=== PATIENT | female | born 1945 | race Asian ===

== ENCOUNTER 2016-05-16 15:10 | Inpatient (IN) | payer MEDICARE, MEDICAID ==
--- NOTE | 2016-05-16 15:33 | ED Physician Chart ---
Chief Complaint/HPI - Patient Information Date Seen:: 05/16/16 Time Seen:: 15:20 Chief Complaint:: facial trauma History of Present Illness:: unwitnessed fall. Facial contusions. Missed dialysis today. Language barrier : speaks Palestinian. Historian:: EMS Review:: Transfer documents Reviewed Review of Systems - Review of Systems General/Constitutional: No fever, No chills Skin: Skin lesions Head: No headache Eyes: No loss of vision ENT: No earache, No nasal drainage, No sore throat Neck: No neck pain, No stiffness Cardio Vascular: No chest pain, No palpitations Pulmonary: No SOB GI: No nausea, No vomiting G/U: No dysuria, No frequency Musculoskeletal: No bone or joint pain, No muscle pain Endocrine: No polyuria Psychiatric: Depression Hematopoietic: Bruising Allergic/Immuno: No urticaria Neurological: No focal symptoms Past Medical History - Past Medical History Past Medical History: HTN, DM, CHF, Asthma/COPD (renal failure on dialysis), Thyroid disorder, Arthritis, Dementia, Other (AHD; GERD; atrial fibrillation; arthritis; anemia; insomnia; CHF) Family History: Other (unavailable) Social History: Care Facility Surgical History: other (hip; G-tube; Gaurav catheter) Psychiatricy History: Dementia Medication: Reviewed Family Medical History - Family Member Mother History Unknown: Yes Ethnicity: Non- Living Status: Physical Exam - Physical Examination Other Gen/Cons comments:: chronically ill appearing; shallow respirations Head: Atraumatic Eyes: Lids, conjuctiva normal, PERRL Other Skin comments:: stasis dermatitis forearms; 3 cm superficial ulcer proximal right forearm ENMT: External ears, nose nl Other ENMT comments:: edentulous Neck: No nuchal rigidity Respiratory: Nl effort/Exclusion, Clear to Auscultation Cardio Vascular: RRR GI: No tenderness/rebounding/guarding, No organomegaly, No hernia : No CVA tenderness Extremities: Normal digits & nails Neuro/Psych: No focal deficits Labs/Radiology/EKG Results - Lab Results Results: Laboratory Results - last 24 hr 05/16/16 05/16/16 05/16/16 15:35 15:35 15:35 WBC 17.7 H RBC 4.38 Hgb 12.7 Hct 36.8 MCV 84.0 MCH 28.9 MCHC Differential 34.4 RDW 15.7 Plt Count 250 MPV 8.4 Neutrophils % 83.4 H Lymphocytes % 8.3 L Monocytes % 6.9 Eosinophils % 0.7 Basophils % 0.7 Sodium 129 L Potassium 3.9 Chloride 94 L Carbon Dioxide 29.2 Anion Gap 9.7 BUN 77 H Creatinine 3.1 H Est GFR ( Amer) TNP Est GFR (Non-Af Amer) TNP BUN/Creatinine Ratio 24.8 Glucose 129 H Calcium 11.7 H Magnesium 3.0 H Troponin I B-Natriuretic Peptide 1140.0 H 05/16/16 15:35 WBC RBC Hgb Hct MCV MCH MCHC Differential RDW Plt Count MPV Neutrophils % Lymphocytes % Monocytes % Eosinophils % Basophils % Sodium Potassium Chloride Carbon Dioxide Anion Gap BUN Creatinine Est GFR ( Amer) Est GFR (Non-Af Amer) BUN/Creatinine Ratio Glucose Calcium Magnesium Troponin I 0.03 B-Natriuretic Peptide - Radiology Results Results: CXR: COPD and calcification of aortic arch; CT he4ad: severe atrophy; right frontal parietal: possible meningioma; small loculated subdural hematoma cannot be ruled out - EKG Interpretations Rhythm: NSR [place]: normal Rate: 86 Comments:: old anterior-septal [facility] ED Septic Shock - . Is Septic Shock (SBP<90, OR Lactate>4 mmol\L) present?: No Reassessment (Disposition) - Reassessment Reassessment Condition:: Unchanged - Diagnosis Diagnosis:: abscess right forearm; leukocytosis; blunt head trauma; renal failure on dialysis - Patient Disposition Admitted to:: Med/Surg Spoke to:: Yohannes Bradshaw Admitting Medical Physician:: Yohannes Bradshaw Condition at Disposition:: Stable, Unchanged
[2016-05-16 15:49] LABS: % BASOPHILS 0.7 % (0.0-2.0); % EOSINOPHILS 0.7 % (0.0-5.0); % LYMPHOCYTES 8.3 % (20.0-50.0); % MONOCYTES 6.9 % (2.0-10.0); % NEUTROPHILS 83.4 % (40.0-80.0); HEMATOCRIT 36.8 % (35.0-45.0); HEMOGLOBIN 12.7 gm/dL (11.7-16.1); MEAN CORPUSCULAR HEMOGLOBIN 28.9 pg (27.0-31.0); MEAN CORPUSCULAR HGB CONC 34.4 pg (28.0-36.0); MEAN PLATELET VOLUME 8.4 fl; NEUTROPHILE ABSOLUTE 14.8 Th/cmm (1.8-8.0); PLATELET COUNT 250 Th/cmm (150-400); RED BLOOD COUNT 4.38 Mil/cmm (3.80-5.20); RED CELL DISTRIBUTION WIDTH 15.7 % (11.5-20.0); WHITE BLOOD COUNT 17.7 Th/cmm (4.8-10.8)
[2016-05-16 15:55] LABS: ANION GAP 9.7 (7.0-16.0); BUN - UREA NITROGEN 77 mg/dL (7-25); BUN/CREATININE RATIO 24.8; CALCIUM SERUM 11.7 mg/dL (8.6-10.3); CARBON DIOXIDE 29.2 mEq/L (21.0-31.0); CHLORIDE 94 mEq/L (98-107); CREATININE - SERUM 3.1 mg/dL (0.6-1.2); GLUCOSE 129 mg/dL (70-105); POTASSIUM SERUM 3.9 mEq/L (3.5-5.1); SODIUM SERUM 129 mEq/L (136-145)
--- NOTE | 2016-05-16 16:06 | Diagnostic Imaging Report ---
Portable chest x-ray HISTORY: Shortness of breath Allowing for portable technique, the overall heart size is normal. Atherosclerotic calcification seen through the aorta. A 5 mm calcified nodule is noted in the left lower lobe consistent with old granulomatous disease. No acute pulmonary processes. A right-sided vascular catheter tip is in the region of the right atrium. IMPRESSION: 1. No acute abnormalities 2. Atherosclerotic vascular changes 3. Small calcified nodule within the left lower lobe consistent with old granulomatous disease 4. Vascular catheter tip in the region of the right atrium.
--- NOTE | 2016-05-16 23:30 | Admit Criteria Form ---
Admit Criteria Forms - Admit Criteria Diagnosis: HYPONATREMIA; HYPERNATREMIA; HYPOKALEMIA; HYPERKALEMIA; HYPOCALCEMIA; HYPERCALCEMIA Clinical Indications for Inpatient Care (Place 'X' for any and all applicable criteria): Ongoing inpatient care may be indicated for ANY ONE of the following [G](1)(2)(3 )(5): [X]I. Hyponatremia with ANY ONE of the following: [X]a) Sodium less than 130 mEq/L (mmol/L) (new) (6)(22) [ ]b) Sodium less than 135 mEq/L (mmol/L) with ANY ONE of the following: [ ]i) Severe medical etiology requiring inpatient management (eg, heart failure, hypovolemia) [ ]ii) Altered mental status [ ]iii) Seizures [ ]II. Hypernatremia with ANY ONE of the following: [ ]a) Sodium greater than 155 mEq/L (mmol/L) [ ]b) Sodium greater than 150 mEq/L (mmol/L) with ANY ONE of the following: [ ] i) Altered mental status [ ]ii) Seizures [ ]iii) Severe medical etiology (eg, hypovolemia, diabetes insipidus) [ ]iv) Severe weakness [ ]v) Severe medical etiology (eg, hemolysis, infection, drug overdose) [ ]III. Hypokalemia with ANY ONE of the following: [ ]a) Potassium less than 2.5 mEq/L (mmol/L) despite outpatient and emergency treatment [ ]b) Potassium less than 3.0 mEq/L (mmol/L) with ANY ONE of the following: [ ]i) Weakness [ ]ii) Cardiac abnormality (eg, arrhythmia, conduction disturbance) [ ]iii) Cardiac ischemia [ ]iv) Ileus [ ]v) Ongoing medical cause requiring inpatient management. ( e.g., acute renal wasting, SIADH) [ ]vi) Other severe symptoms [ ] IV. Hyperkalemia with ANY ONE of the following: [ ]a) Potassium greater than 6.5 mEq/L (mmol/L) [ ]b) Potassium greater than 5 mEq/L (mmol/L) with ANY ONE of the following: [ ]i) Severe ECG findings [H] [ ]ii) Acute worsening of renal failure (creatinine greater than 2.5 mg/dL (221 micromoles/L) or significant elevation for age and size) [ ] V. Hypocalcemia with ANY ONE of the following: [ ]a) Calcium less than 7 mg/dL (1.75 mmol/L) despite outpatient and emergency treatment(19) [ ]b) Calcium less than 8 mg/dL (2 mmol/L) with significant symptoms or findings; examples include: [ ]i) Cardiac abnormality (eg, arrhythmia or conduction disturbance) [ ]ii) Altered mental status [ ]iii) Seizures [ ]iv) Breathing difficulty [ ]v) Muscle spasms [ ]. Hypercalcemia with ANY ONE of the following: [ ]a) Calcium greater than 14 mg/dL (3.5 mmol/L) [ ]b) Calcium greater than 12 mg/dL (3 mmol/L) with ANY ONE of the following: [ ]i) Significant dehydration or hypovolemia as indicated by ANY ONE of the following(2): [ ]1. Clinically significant dehydration as indicated by ANY ONE of the following: [ ]A. Acute loss of weight from baseline (5% of body weight in adults, 9% in pediatric patients) [ ]B. Hemodynamic instability [ ]C. Acute renal failure [ ]D. Serum sodium greater than 150 mEq/L (mmol/L) [ ]2) Dehydration that is persistent indicated by ALL of the following: [ ]A. Oral rehydration therapy not tolerated or insufficient to adequately correct dehydration [ ]B. Appropriate intravenous treatment (eg, fluids ) does not readily correct dehydration ie, after 12 to 24 hours of treatment) [ ]ii) Significant symptoms or findings; examples include: [ ]1) Altered mental status [ ]2) Cardiac abnormality (eg, arrhythmia, conduction disturbance) [ ]3) Cardiac abnormality (eg, arrhythmia, conduction disturbance) The original [facility] content created by [employer] has been revised. The portions of the content which have been revised are identified through the use of italic text or in bold, and [email or web address] has neither reviewed nor approved the modified material. All other unmodified content is copyright [email or web address] Please see references footnoted in the original [facility] edition 2016 Admit Criteria Met?: Yes
[2016-05-17 06:14] LABS: PROTHROMBIN TIME (TEST) 44.4 SECONDS (9.5-11.5)
[2016-05-17 06:17] LABS: INR 4.09 (0.5-1.4)
[2016-05-17] MEDS: Vitamin B Complex w/Vitamin C Tab GT SCH (08:49)
[2016-05-17] MEDS: Levothyroxine 0.125 Mg Tab GT SCH (08:49)
[2016-05-17] MEDS: Pantoprazole 40 mg/Packet GT SCH (08:49)
--- NOTE | 2016-05-17 11:32 | Diagnostic Imaging Report ---
Head CT without intravenous contrast Indication: Fall, shallow respirations Comparison: None Technique: Axial images were obtained from the vertex to the skull base without IV contrast. Coronal reconstructions were made. Total DLP: 555, CTDI30.9 FINDINGS: Exam is limited due to motion. Images of the brain obtained contrast demonstrate 1.0 x 0.5 cm right frontal extra-axial isodensity. Otherwise no evidence of an acute hemorrhage. Atrophy is noted with diffuse white matter disease. Old infarcts are seen along the left basal ganglia and left cerebellar hemisphere. The ventricles and basal cisterns are patent. No mass effect or midline shift. Assessment for a skull fracture is limited on this exam, however, no gross skull fractures identified. IMPRESSION: Limited exam due to motion. 1.0 x 0.5 cm isodense right frontal extra-axial lesion, nonspecific, and may represent a meningioma. Other etiologies such as posttraumatic etiology and small extra-axial subacute hemorrhage would be considered less likely. Clinical correlation and short-term follow-up is suggested. Short-term follow-up MRI, preferably with IV contrast with be helpful for further assessment. Diffuse supratentorial white matter disease which is nonspecific and may be due to chronic microvessel ischemia. 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 Atrophy. Atherosclerotic vascular disease.
--- NOTE | 2016-05-17 15:22 | History & Physical ---
IDENTIFICATION: The patient is a 70-year-old female. REASON FOR CONSULTATION: Unwitnessed fall, facial contusion, missed dialysis today. HISTORY OF PRESENT ILLNESS: The patient is a 70-year-old female with past medical history of hypertension, diabetes mellitus, CHF, asthma, COPD, renal failure on hemodialysis, CKD stage V, on hemodialysis, thyroid disorder, dementia, atrial fibrillation, anemia, insomnia, CHF brought from custodial for status post fall with some facial contusion. On further evaluation, found to have right upper extremity wound with surrounding erythema. The patient was admitted for cellulitis of the right upper extremity. On initial evaluation, the patient's temperature was 98.9 degrees Fahrenheit and WBC count was 17,700. Sepsis workup was performed. The patient was admitted to the med/surg unit for further antibiotic management. The patient was started on vancomycin. PAST MEDICAL HISTORY: As mentioned above, CKD stage V, on hemodialysis, severe dementia, hypertension, diabetes mellitus, CHF, thyroid disorder, arthritis, atrial fibrillation, anemia, insomnia, CHF. FAMILY HISTORY: Noncontributory. SOCIAL HISTORY: The patient lives at nursing facility. PAST SURGICAL HISTORY: Includes G-tube placement and Gaurav catheter. PSYCHIATRIC HISTORY: Dementia. FAMILY HISTORY: Unknown. REVIEW OF SYSTEMS: The patient unable to give any history, very poor historian, demented. PHYSICAL EXAMINATION: VITAL SIGNS: Shows temperature is 97.5, pulse 83, respirations 18, blood pressure is 133/56. GENERAL: The patient is comfortable, cachectic, not in acute distress. HEENT: Head is normocephalic, atraumatic. Oral cavity moist. [place] tongue. Eyes: Pallor is present, no icterus. PERRLA, EOMI. NECK: Supple, no JVD, no carotid bruit. Trachea in midline. CHEST: Bilateral breath sounds. No crackles, wheezing. The patient has right-sided subclavian Perm-A-Cath. HEART: S1, S2 within normal limits. Regular rhythm. ABDOMEN: Soft, nontender, nondistended. Bowel sounds present. EXTREMITIES: No cyanosis, no clubbing, no edema. On right hand, the patient has 3 cm stage II-III wound in the right forearm. NEUROLOGICAL: No focal deficits. LABORATORY DATA: Current labs shows WBC count 17,700, hemoglobin 12.7, hematocrit 36.8, platelets are 250,000, neutrophils 83.4%. Sodium is 129, potassium 3.9, chloride 94, bicarbonate is 29, BUN is 77, creatinine 3.1, glucose is 129. Chest x-ray showed no acute abnormalities, small calcified nodule in left lobe consistent with old granulomatous disease. CT scan of the head suggested 1 x 0.5 cm isodense right frontal extraaxial lesion, nonspecific and may represent meningioma. Other etiologies includes such as posttraumatic etiology and small extraaxial subacute hemorrhage will be considered less likely. IMPRESSION: 1. Right upper extremity cellulitis with wound. 2. Chronic obstructive pulmonary disease. 3. Atrial fibrillation. 4. Coagulopathy because of warfarin. 5. Hypertension. 6. Chronic obstructive pulmonary disease. 7. Cachexia. 8. Small subdural hematoma versus meningioma. RECOMMENDATIONS: We will ask for Neurology consultation, Cardiology consultation, and Nephrology consultation. Wound care. Restart Dorcas. [facility]# [id number] MTDD
[2016-05-17] MEDS ORDERED: VTE Chemical Prophylaxis Screen/Admission MC PRN (17:01)
[2016-05-17] MEDS ORDERED: Non-Formulary Item 1 EA (Melatonin [Melatonin] 5 MG) GT SCH (21:00)
--- NOTE | 2016-05-17 23:38 | Consultation ---
REASON FOR CONSULTATION: End-stage renal disease. HISTORY OF PRESENT ILLNESS: The patient is a pleasant 70-year-old woman with a history of end-stage renal disease secondary to nephropathy and hypertensive nephrosclerosis, apparently dialyzing at [facility] who has a history of hypothyroidism, arthritis, dementia. On examination, unable to obtain any history from the patient due to the patient's dementia. The patient apparently missed her dialysis due to apparent fall at home for which she was admitted and examination as per above, could not obtain any history. Right tunneled chest wall catheter is in place. REVIEW OF SYSTEMS: Unable to obtain secondary to patient's status, communication barrier. PAST MEDICAL HISTORY: End-stage renal disease, on hemodialysis secondary to diabetic nephropathy, congestive heart failure, asthma, COPD, hypothyroidism, arthritis, dementia, atrial fibrillation, anemia secondary to end-stage renal disease. MEDICATIONS: From nursing facility reviewed. Continues to be on omeprazole, Norvasc, Remeron, metoprolol, melatonin, Dulcolax, Coumadin, amiodarone, Tylenol, Renovite and Synthroid. ALLERGIES: No known drug allergies. SOCIAL HISTORY: Denies smoking, alcohol or drug use per report from residential. FAMILY HISTORY: Noncontributory. PHYSICAL EXAMINATION: VITAL SIGNS: Temperature 36, blood pressure 142/60, pulse 83, respirations 18. GENERAL APPEARANCE: Elderly woman, cachectic, in no apparent distress, alert, but not oriented. LUNGS: Clear to auscultation bilaterally. CARDIOVASCULAR: Regular rate. Normal rhythm. No murmurs, gallops. ABDOMEN: Nondistended, nontender. G-tube is place. No erythema over site seen. EXTREMITIES: Trace edema, 1+ pulses distally. Chest wall, right tunneled catheter in place. Site clean, dry, and intact. LABORATORY DATA: White count 17.7, hemoglobin 12.7, platelets 250. Chemistry: Sodium 129, K 3.9, chloride 94, CO2 29, BUN 77, creatinine 3.1, glucose 129, calcium 11.7, mag is 3.0. BNP is 1140. Imaging done. A chest x-ray demonstrates small pleural effusion, otherwise no acute cardiopulmonary disease detected. A head CT demonstrates chronic small vessel ischemic disease. Focal hypodensity left frontal white matter region. Otherwise, a partially hyperdense extraaxial density left parietal region, possible subdural hematoma. ASSESSMENT AND RECOMMENDATIONS: 1. End-stage renal disease, on hemodialysis via a right tunneled catheter. Per report very little residual urine output noted. Continue dialysis. We will do a session today. The patient can likely be stable over the weekend as long as fluid restriction to a maximum of 2 liters a day as recorded. Otherwise, we will assess for dialysis on an as needed basis. 2. Anemia secondary to end-stage renal disease. Hemoglobin appears to be within normal limits and actually as above range. No transfusion or erythropoietin is indicated at this time. 3. History of dementia. Mental status appears to be at baseline. 4. History of hypertension. Continue current medications. Amlodipine, amiodarone and metoprolol through G-tube at this time. 5. Left forearm cellulitis - on antibiotics per primary team Thank you, Dr. Dariel Bradshaw for allowing us to participate in the care of his end-stage renal disease patient. We will continue to follow along while hospitalized. Please call at any time with questions. [facility]# [id number] BRIA
--- NOTE | 2016-05-18 03:49 | Consultation ---
HISTORY OF PRESENT ILLNESS: This 70-year-old female was seen and examined at the courtesy of Dr. Yohannes Bradshaw. Apparently, the patient was admitted here with a history of fall, possible head trauma, abnormal CAT scan of the head and also with abscess on the right forearm open wound. The patient does have history of high blood pressure, history of coronary artery disease, history of cardiac arrhythmia, has been on Coumadin, I do not know what kind of arrhythmia she had in the past, congestive heart failure and has end-stage renal disease, on hemodialysis. She has also history of hypothyroidism. The patient was also found to have leukocytosis and hypothyroidism. PAST MEDICAL HISTORY: Usual childhood diseases. No history of rheumatic fever. No history of scarlet fever. Other positive history as mentioned above. FAMILY HISTORY: Apparently not significant. REVIEW OF SYSTEMS: Whatever I could get from the notes, she has chest pain, some shortness of breath, no cough, no fever, no hemoptysis, no history of melena, no history of hematuria, history of end-stage renal disease. PHYSICAL EXAMINATION: VITAL SIGNS: Heart rate was 72, blood pressure was 132/56, temperature 97.5, respirations 18. SKIN: Normal. HEAD: Normocephalic. EYES: Conjunctivae are pink. There is no icterus in the eyes. Pupils reactive to light. NECK: There was no increased jugular vein distention, no thyromegaly, no lymphadenopathy. Carotids are equal on both sides. CHEST: Bilaterally symmetrical, moved well with respiration. Respiratory movements are equal on both sides. Trachea is central. There is note to percussion. Breath sounds normal. CARDIOVASCULAR SYSTEM: PMI not well localized and no positional thrill, no parasternal heave. S1 normal. S2 physiologic. There was no definite S3, no rub. ABDOMEN: Soft, no tenderness, no rigidity, no guarding, no organomegaly. Bowel sound normal. EXTREMITIES: No calf tenderness. Peripheral pulses diminished. LABORATORY DATA: On reviewing the lab and the x-rays, CAT scan of the head shows 1 x 0.5 cm isodense right frontal extraaxial lesion, nonspecific and may represent a meningioma. Other possibilities could be posttraumatic etiology and a small extraaxial subacute hemorrhage possible. WBC count was 17.7, hemoglobin 12.7, hematocrit 36.8, platelet count was 250. Sodium 129, potassium 3.9, chloride 94, carbon dioxide 29, BUN 77, creatinine 3.1. INR was 4.09. Troponin was 0.03. Glucose was 71. Calcium 11.7, magnesium 3.0. BNP was 1140. Chest x-ray just showed atherosclerotic vascular changes, small calcified nodule within the left lower lobe consistent with old granulomatous disease, vascular catheter tip in the region of right atrium. IMPRESSION: 1. Hypertension. 2. Coronary artery disease, electrocardiogram showing possible old anteroseptal myocardial infarction. 3. History of cardiac arrhythmia. 4. Congestive heart failure. 5. Coagulopathy. 6. End-stage renal disease, on hemodialysis. 7. Hyponatremia. 8. Anemia. 9. Hypothyroidism. 10. History of fall, possible head trauma with abnormal CT of the head, abscess of the right forearm with open wound. 11. Leukocytosis. 12. History of depression. DISCUSSION AND PLAN: Her blood pressure seems to be within normal limits now, stable. She does not have any chest pains, no respiratory distress, seems to be hemodynamically stable; however, BNP was high, congestive heart failure, but she is on hemodialysis, so that should be helpful to relieve CHF. We will get echocardiogram to evaluate left ventricular function and valvular structure. We will also get lipid profile. To continue beta-clayton and other BP medication. Even the NOÉ inhibitor can also be added and the patient is already on in the hemodialysis. Add statins. To continue other medications. Thank you. We will follow with you as needed. [facility]# [id number]
[2016-05-18 07:15] LABS: % BASOPHILS 0.5 % (0.0-2.0); % EOSINOPHILS 1.9 % (0.0-5.0); % LYMPHOCYTES 15.1 % (20.0-50.0); % MONOCYTES 8.6 % (2.0-10.0); % NEUTROPHILS 73.9 % (40.0-80.0); HEMATOCRIT 34.1 % (35.0-45.0); HEMOGLOBIN 11.7 gm/dL (11.7-16.1); MEAN CORPUSCULAR HEMOGLOBIN 28.7 pg (27.0-31.0); MEAN CORPUSCULAR HGB CONC 34.2 pg (28.0-36.0); MEAN PLATELET VOLUME 8.6 fl; NEUTROPHILE ABSOLUTE 9.6 Th/cmm (1.8-8.0); PLATELET COUNT 235 Th/cmm (150-400); RED BLOOD COUNT 4.06 Mil/cmm (3.80-5.20); RED CELL DISTRIBUTION WIDTH 16.3 % (11.5-20.0)
[2016-05-18 07:30] LABS: ANION GAP 8.9 (7.0-16.0); BUN - UREA NITROGEN 51 mg/dL (7-25); BUN/CREATININE RATIO 22.2; CALCIUM SERUM 9.7 mg/dL (8.6-10.3); CHLORIDE 100 mEq/L (98-107); CHOLESTEROL 120 mg/dL (<200); CREATININE - SERUM 2.3 mg/dL (0.6-1.2); GLUCOSE 114 mg/dL (70-105); POTASSIUM SERUM 3.9 mEq/L (3.5-5.1); SODIUM SERUM 134 mEq/L (136-145); TRIGLYCERIDES 178 mg/dL (<150)
[2016-05-18 07:39] LABS: WHITE BLOOD COUNT 12.9 Th/cmm (4.8-10.8)
[2016-05-18] MEDS ORDERED: Atorvastatin Calcium 10 MG TAB GT SCH (09:00)
[2016-05-18] MEDS: Pantoprazole 40 mg/Packet GT SCH (09:13)
[2016-05-18] MEDS: Atorvastatin Calcium 10 MG TAB GT SCH (09:14)
[2016-05-18] MEDS: Levothyroxine 0.125 Mg Tab GT SCH (09:14)
[2016-05-18] MEDS: Vitamin B Complex w/Vitamin C Tab GT SCH (09:15)
--- NOTE | 2016-05-18 10:15 | History & Physical ---
HISTORY OF PRESENT ILLNESS: The patient is a 70-year-old. The patient having fall unwitnessed, had contusion on the face. The patient has hemodialysis and apparently missed her dialysis. She is lying in bed, awake, alert. Follows simple instructions ____. PAST MEDICAL HISTORY: The patient has history of hypertension, diabetes, COPD, renal failure, on dialysis, thyroid disorder, the patient with dementia. The patient has atrial fibrillation, anticoagulation, anemia, insomnia. The patient has some cellulitis of the right upper extremity. The patient had fall shoulder as above. The patient has dysphagia, has a G-tube. She has weakness on the right side, so I did not know whether she has had previous stroke or not. SOCIAL HISTORY: The patient is in a nursing facility. PAST SURGICAL HISTORY: G-tube and Gaurav catheter. PSYCHIATRIC HISTORY: Dementia. REVIEW OF SYSTEMS: Difficult to get, but the patient has no seizures here. Moving extremities though less on the right. Dysphagia with G-tube. PHYSICAL EXAMINATION: VITAL SIGNS: Temperature 98.2, blood pressure 140/58, pulse is around 76. NECK: Supple. No bruits. HEART: Sounds S1, S2. LUNGS: Clear. ABDOMEN: Soft. NEUROLOGIC: Awake, alert. She follows ____. CRANIAL: Pupils react to light. She will look both to the right and left. The patient has facial droop on the right. ____, she will lift arms, but less on the right than the left. Reflexes about 1. Difficult to get at the ankles. INVESTIGATIONS: INR noted to be elevated. CT scan of the head, 1 cm x 0.5 lesion extraaxial on the right frontal area, question of possible meningioma, question of possible previous subacute hemorrhage. IMPRESSION: 1. Falls. 2. Possible meningioma, possible subacute chronic subdural. 3. Atrial fibrillation, coagulopathy because of anticoagulation. 4. Dementia. 5. Possible stroke, old with right-sided deficits. 6. Hypertension. 7. End-stage renal disease, on hemodialysis. MANAGEMENT: At this time, we cannot do a CT scan with contrast because of renal failure and I am going to do an MRI without contrast. ____ whether this is meningioma in which case she will be okay to go ahead and proceed with continue with anticoagulation. If this is a subacute hematoma, then will have to watch very closely and see whether this patient does really need anticoagulation or not as she has risk for increasing bleed. [facility]# [id number]
--- NOTE | 2016-05-18 14:50 | Cardiology ---
Patient of Dr. Yohnanes Bradshaw. M-MODE ECHOCARDIOGRAM: Mitral valve, anterior leaflet of mitral valve shows normal excursion, EF velocity. Posterior leaflet of the mitral valve shows normal excursion. Left ventricular posterior wall shows increased thickness, normal excursion. Interventricular septum shows increased thickness, normal excursion, hypertrophy of the left ventricle, ejection fraction 74%. Left atrium normal. Aortic root shows normal dimension, normal excursion of aortic leaflets. CONCLUSION: Hypertrophy of the left ventricle, ejection fraction 74%. 2D ECHO: Long axis view showed normal sized left ventricle with hypertrophy of the left ventricle. Left atrium normal. Aortic root shows normal dimension, normal excursion of aortic leaflets. Short axis view of mitral valve normal. Short axis view of aortic valve normal. Apical four chamber view showed normal sized left ventricle with hypertrophy of the left ventricle. Left atrium normal. Right ventricular cavity, right atrium normal, no pericardial effusion. CONCLUSION: Hypertrophy of the left ventricle, ejection fraction 74%. Doppler study shows mild mitral regurgitation, tricuspid regurgitation, aortic regurgitation with pressure half time of 768 milliseconds. CONCLUSION: Mild mitral regurgitation, tricuspid regurgitation, aortic regurgitation, ejection fraction 74%, hypertrophy of the left ventricle. No evidence of endocarditis. [facility]# [id number]
[2016-05-18] MEDS: Albuterol/Ipratropium Neb 3 ML AERS HHN SCH (19:51)
--- NOTE | 2016-05-18 21:00 | Consultation ---
REASON FOR CONSULTATION: Help patient with shortness of breath. CONSULT NOTE: This is a 70-year-old female who basically initially was admitted because had a fall and apparently has had some injury in the face and hand and subsequently had some issues with breathing as well as very poor cooperative. The patient was admitted and subsequently as the patient had shortness of breath, I was asked to see this patient for further care and necessary treatment. Unfortunately, the patient is a very poor historian, who is awake, ____ able to get meaningful detailed history, though clinically does ____ shortness of breath. PAST MEDICAL HISTORY: History of COPD, hypertension, diabetes mellitus, renal failure on dialysis and history of also dementia and also atrial fibrillation with anticoagulation. The patient lives in a convalescent home. Meaningful other past history is very difficult to obtain, has a G-tube and a Gaurav catheter. PHYSICAL EXAMINATION: GENERAL: This is an elderly looking female, awake, not in any acute distress. VITAL SIGNS: Temperature is 97.8, blood pressure 130/58. HEENT: Examination of the head is essentially unremarkable. Pupils appear to be equal and reactive to light. There is slight ____ in the left side. Oral cavity shows limited exam otherwise unremarkable. NECK: No nodes in the neck could be palpated. CHEST: Shows diminished air entry with occasional rhonchi. HEART: Regular. ABDOMEN: Soft, nontender. EXTREMITIES: Shows no peripheral edema. LABORATORY DATA: The patient's chest x-ray appears to be clear with a Gaurav catheter on the right side and also white count is 12.9. Electrolytes are okay with BUN and creatinine is slightly elevated. IMPRESSION: 1. The patient has a mild degree of asthmatic bronchitis. 2. History of fall, history of suspect of obstructive sleep apnea syndrome, cardiac arrhythmia, renal failure on hemodialysis. PLANS AND SUGGESTIONS: The patient clinically does not look too bad. We will give inhalation treatment, check ABG, etc. and see how she does and go from there. JOB# [id number]
--- NOTE | 2016-05-18 23:19 | Infectious Disease Prog Note ---
Infectious Disease Subjective - Review of Systems Service Date: 05/18/16 Subjective: no new change. Infectious Disease Objective - Results Result Diagrams: 05/18/16 06:26 05/18/16 06:26 Recent Labs: Laboratory Last Values WBC 12.9 Th/cmm (4.8-10.8) H D 05/18/16 06:26 RBC 4.06 Mil/cmm (3.80-5.20) 05/18/16 06:26 Hgb 11.7 gm/dL (11.7-16.1) 05/18/16 06:26 Hct 34.1 % (35.0-45.0) L 05/18/16 06:26 MCV 84.0 fl (81-100) 05/18/16 06:26 MCH 28.7 pg (27.0-31.0) 05/18/16 06:26 MCHC Differential 34.2 pg (28.0-36.0) 05/18/16 06:26 RDW 16.3 % (11.5-20.0) 05/18/16 06:26 Plt Count 235 Th/cmm (150-400) 05/18/16 06:26 MPV 8.6 fl 05/18/16 06:26 Neutrophils % 73.9 % (40.0-80.0) 05/18/16 06:26 Lymphocytes % 15.1 % (20.0-50.0) L 05/18/16 06:26 Monocytes % 8.6 % (2.0-10.0) 05/18/16 06:26 Eosinophils % 1.9 % (0.0-5.0) 05/18/16 06:26 Basophils % 0.5 % (0.0-2.0) 05/18/16 06:26 PT 44.4 SECONDS (9.5-11.5) H 05/17/16 04:57 INR 4.09 (0.5-1.4) H* 05/17/16 04:57 Sodium 134 mEq/L (136-145) L 05/18/16 06:26 Potassium 3.9 mEq/L (3.5-5.1) 05/18/16 06:26 Chloride 100 mEq/L (98-107) 05/18/16 06:26 Carbon Dioxide 29.0 mEq/L (21.0-31.0) 05/18/16 06:26 Anion Gap 8.9 (7.0-16.0) 05/18/16 06:26 BUN 51 mg/dL (7-25) H 05/18/16 06:26 Creatinine 2.3 mg/dL (0.6-1.2) H 05/18/16 06:26 Est GFR ( Amer) TNP 05/18/16 06:26 Est GFR (Non-Af Amer) TNP 05/18/16 06:26 BUN/Creatinine Ratio 22.2 05/18/16 06:26 Glucose 114 mg/dL (70-105) H 05/18/16 06:26 Calcium 9.7 mg/dL (8.6-10.3) 05/18/16 06:26 Magnesium 3.0 mg/dL (1.9-2.7) H 05/16/16 15:35 Troponin I 0.03 ng/mL (0.01-0.05) 05/16/16 15:35 B-Natriuretic Peptide 1140.0 pg/mL (5.0-100.0) H 05/16/16 15:35 Triglycerides 178 mg/dL (<150) H 05/18/16 06:26 Cholesterol 120 mg/dL (<200) 05/18/16 06:26 LDL Cholesterol Direct 67 mg/dL (75-193) L 05/18/16 06:26 HDL Cholesterol 33 mg/dL (23-92) 05/18/16 06:26 Random Vancomycin 15.6 ug/mL (5.0-40.0) 05/18/16 06:26 - Physical Exam Vitals and I&O: Vital Signs Temp 97.7 F 05/18/16 20:00 Pulse 77 05/18/16 20:00 Resp 18 05/18/16 20:00 BP 114/76 05/18/16 20:00 Pulse Ox 100 05/18/16 20:00 Intake & Output 05/18/16 05/18/16 05/19/16 06:59 18:59 06:59 Intake Total 530 420 Output Total 2600 Balance -2070 420 Intake: Tube Feeding 410 TPN/PPN 420 Other 120 Output: Hemodialysis 2600 Other: # Voids 3 # Bowel Movements 2 Stool Characteristics Soft Soft Brown Active Medications: Current Medications Acetaminophen (Tylenol) 650 mg GT Q6HR PRN PRN Reason: Pain or Fever >101 Stop: 07/15/16 23:02 Last Admin: 05/18/16 20:23 Dose: 650 mg Albuterol/Ipratropium (Duoneb Neb) 3 ml HHN Q6HRT GABRIEL Stop: 07/17/16 18:59 Last Admin: 05/18/16 19:51 Dose: 3 ml Amiodarone HCl (Cordarone) 200 mg GT DAILY GABRIEL Stop: 07/16/16 08:59 Last Admin: 05/18/16 09:14 Dose: 200 mg Amlodipine Besylate (Norvasc) 10 mg GT DAILY GABRIEL Stop: 07/16/16 08:59 Last Admin: 05/18/16 09:13 Dose: 10 mg Atorvastatin Calcium (Lipitor) 10 mg GT DAILY GABRIEL PRN Reason: Protocol Stop: 07/17/16 08:59 Last Admin: 05/18/16 09:14 Dose: 10 mg Bisacodyl (Dulcolax 10 Mg Supp) 10 mg RC Q48HR GABRIEL Stop: 07/15/16 23:14 Last Admin: 05/17/16 00:38 Dose: 10 mg Ceftriaxone Sodium 1 gm/ (Dextrose) 50 mls @ 100 mls/hr IV Q24H GABRIEL Stop: 07/16/16 12:59 Last Admin: 05/18/16 13:10 Dose: 100 mls/hr Levothyroxine Sodium (Synthroid) 0.125 mg GT DAILY GABRIEL Stop: 07/16/16 08:59 Last Admin: 05/18/16 09:14 Dose: 0.125 mg Metoprolol Succinate (Toprol Xl) 25 mg PO DAILY GABRIEL Stop: 07/16/16 08:59 Last Admin: 05/18/16 09:14 Dose: 25 mg Mirtazapine (Remeron) 15 mg GT HS GABRIEL PRN Reason: Protocol Stop: 07/16/16 20:59 Last Admin: 05/18/16 20:23 Dose: 15 mg Miscellaneous (Pharmacy To Dose) 1 ea MC PRN GABRIEL Stop: 07/15/16 23:14 Miscellaneous (Vte Chemical Prophylaxis Screen/ Admission) 1 ea MC PRN PRN PRN Reason: PROTOCOL Stop: 07/16/16 17:00 Pantoprazole Sodium (Protonix) 40 mg GT DAILY GABRIEL Stop: 07/16/16 08:59 Last Admin: 05/18/16 09:13 Dose: 40 mg Vitamin B Complex/Vit C/Folic Acid (Vitamin B Complex W/Vitamin C) 1 tab GT DAILY GABRIEL Stop: 07/16/16 08:59 Last Admin: 05/18/16 09:15 Dose: 1 tab General: no acute distress HEENT: atraumatic, normocephalic, PERRLA, EOMI Neck: supple Cardiovascular: S1S2, regular Lungs: clear to auscultation bilaterally, clear to percussion Abdomen: soft, no tender, no distended Extremities: other (R upper forearm wound with rednesess.), no cyanosis, no clubbing Skin: intact Infectious Disease Assmt/Plan - Assessment Assessment: right fore amm wound and cellulitis. Dementia. CKD 5 on HD. Afib. Coaulopathy. HTN COPD. Abnormal CT scan. - Plan Plan: will hold anticoagulation. Continue same treatment. F/u per consults. Wound care. Nutritional Asmnt/Malnutr-PDOC - Dietary Evaluation Malnutrition Findings (Please click <Entered> for more info): Nutritional Asmnt/Malnutrition Start: 05/17/16 13: 00 Text: Status: Complete Freq: Document 05/17/16 13:02 GSYOSHI (Rec: 05/17/16 13:32 [email or web address]) Nutritional Asmnt/Malnutrition Patient General Information Nutritional Screening High Risk Screening Diagnosis ER: leukocytosis, blunt head trauma, on HD, abscess right forearm Pertinent Medical Hx/Surgical Hx ER: HTN, DM, CHF, asthma/COPD, renal failure on HD, thyroid disorder, arthritis, dementia, AHD, GERD, atrial fibrillation Subjective Information 70 year old female from SNF, unwitnessed fall with facial contusions prior to adm. Pt was asleep, unable to be woken up. Pt appears small frame with moderate fat and muscle wasting to temporals, cheeks, clavicles, chest noted. Obtained new weight during visit, 83.2lb, BMI 16.2. Discussed with Dr. Yohannes Bradshaw to increase Novasource Renal to 35ml/hr x 24hrs, providing 1680kcal, 76g protein, obtained order. Current Diet Order/ Nutrition Support Novasource Renal 45ml/hr x 16hrs Pertinent Medications Dulcolax, Synthroid, Protonix, Vitamin B complex w/Vitamin C Pertinent Labs 05/16: BUN 77H, creatinine 3.1H , glucose 129H, BNP 1140H Nutritional Hx/Data Height 12.7 cm Height (Calculated Centimeters) 12.7 Current Weight (lbs) 37.739 kg Weight (Calculated Kilograms) 37.7 Weight (Calculated Grams) 70522.9 [place] Body Weight 100lb Weight Status Underweight GI Symptoms Difficult in: Chewing Swallowing Food Allergies No Cultural/Ethnic/Sabianist Belief Colombian. Usual diet at home Tube feeding dependent. Skin Integrity/Comment: ER and RN: right forearm abscess/ulceration Estimated Nutritional Goals Calories/Kcals/Kg IBW 115lb at BMI 22.5, 30- 35kcal/kg (on HD, malnutrition ) Kcals Calculated 1569-1831kcal/kg Protein g/kg: IBW 115lb at BMI 22.5, 1.2-1. 5g/kg (on HD, malnutrition, ? ulceration) Protein Calculated 63-78g Fluid: ml Per MD (hx. CHF) Nutritional Problem 2. Problem Problem Impaired nutrient utilization related to Etiology renal failure aeb Signs/Symptoms: pt is on HD 1. Problem Problem Increased kcal and prot needs related to Etiology renal failure, underweight/ malnutrition, skin integrity aeb Signs/Symptoms: on HD, ?ulceration right forearm, BMI 16.2, muscle/fat depletion Malnutrition Alert Body Fat Depletion (Severe) Mod to Severe Depletion Muscle Mass (Severe) Mod to Severe Depletion Intervention/Recommendation Comments 1. Recommend increase tube feeding rate Novasource Renal to 35ml/hr x 24hrs with consideration of hemodialysis, BMI <18.5, muscle/fat depletion, skin integrity. Expected Outcomes/Goals Expected Outcomes/Goals 1. Pt to meet 100% of estimated nutritional needs on tube feeding with tolerance. Physician Parameters for PEM Body Mass Index (BMI) 16 - 17.9 (Moderate)
[2016-05-19] MEDS: Albuterol/Ipratropium Neb 3 ML AERS HHN SCH ×4 (00:51→19:01)
[2016-05-19 06:01] LABS: % BASOPHILS 0.1 % (0.0-2.0); % EOSINOPHILS 3.1 % (0.0-5.0); % LYMPHOCYTES 15.4 % (20.0-50.0); % MONOCYTES 9.6 % (2.0-10.0); % NEUTROPHILS 71.8 % (40.0-80.0); HEMATOCRIT 32.2 % (35.0-45.0); HEMOGLOBIN 10.9 gm/dL (11.7-16.1); MEAN CELL VOLUME 86.5 fl (81-100); MEAN CORPUSCULAR HEMOGLOBIN 29.3 pg (27.0-31.0); MEAN CORPUSCULAR HGB CONC 33.9 pg (28.0-36.0); MEAN PLATELET VOLUME 8.5 fl; NEUTROPHILE ABSOLUTE 9.5 Th/cmm (1.8-8.0); PLATELET COUNT 234 Th/cmm (150-400); RED BLOOD COUNT 3.72 Mil/cmm (3.80-5.20); RED CELL DISTRIBUTION WIDTH 16.5 % (11.5-20.0); WHITE BLOOD COUNT 13.2 Th/cmm (4.8-10.8)
[2016-05-19 06:13] LABS: INR 1.41 (0.5-1.4); PROTHROMBIN TIME (TEST) 14.3 SECONDS (9.5-11.5)
[2016-05-19 06:19] LABS: ANION GAP 12.2 (7.0-16.0); BUN - UREA NITROGEN 78 mg/dL (7-25); BUN/CREATININE RATIO 24.4; CALCIUM SERUM 9.8 mg/dL (8.6-10.3); CARBON DIOXIDE 25.5 mEq/L (21.0-31.0); CHLORIDE 98 mEq/L (98-107); CREATININE - SERUM 3.2 mg/dL (0.6-1.2); GLUCOSE 143 mg/dL (70-105); POTASSIUM SERUM 3.7 mEq/L (3.5-5.1); SODIUM SERUM 132 mEq/L (136-145)
[2016-05-19] MEDS: Pantoprazole 40 mg/Packet GT SCH (08:41)
[2016-05-19] MEDS: Atorvastatin Calcium 10 MG TAB GT SCH (08:42)
[2016-05-19] MEDS: Vitamin B Complex w/Vitamin C Tab GT SCH (08:43)
[2016-05-19] MEDS: Levothyroxine 0.125 Mg Tab GT SCH (08:44)
--- NOTE | 2016-05-19 18:09 | Infectious Disease Prog Note ---
Infectious Disease Subjective - Review of Systems Service Date: 05/19/16 Subjective: no new change. Infectious Disease Objective - Results Result Diagrams: 05/19/16 05:40 05/19/16 05:40 Recent Labs: Laboratory Last Values WBC 13.2 Th/cmm (4.8-10.8) H 05/19/16 05:40 RBC 3.72 Mil/cmm (3.80-5.20) L 05/19/16 05:40 Hgb 10.9 gm/dL (11.7-16.1) L 05/19/16 05:40 Hct 32.2 % (35.0-45.0) L 05/19/16 05:40 MCV 86.5 fl (81-100) 05/19/16 05:40 MCH 29.3 pg (27.0-31.0) 05/19/16 05:40 MCHC Differential 33.9 pg (28.0-36.0) 05/19/16 05:40 RDW 16.5 % (11.5-20.0) 05/19/16 05:40 Plt Count 234 Th/cmm (150-400) 05/19/16 05:40 MPV 8.5 fl 05/19/16 05:40 Neutrophils % 71.8 % (40.0-80.0) 05/19/16 05:40 Lymphocytes % 15.4 % (20.0-50.0) L 05/19/16 05:40 Monocytes % 9.6 % (2.0-10.0) 05/19/16 05:40 Eosinophils % 3.1 % (0.0-5.0) 05/19/16 05:40 Basophils % 0.1 % (0.0-2.0) 05/19/16 05:40 PT 14.3 SECONDS (9.5-11.5) H 05/19/16 05:40 INR 1.41 (0.5-1.4) H 05/19/16 05:40 Sodium 132 mEq/L (136-145) L 05/19/16 05:40 Potassium 3.7 mEq/L (3.5-5.1) 05/19/16 05:40 Chloride 98 mEq/L (98-107) 05/19/16 05:40 Carbon Dioxide 25.5 mEq/L (21.0-31.0) 05/19/16 05:40 Anion Gap 12.2 (7.0-16.0) 05/19/16 05:40 BUN 78 mg/dL (7-25) H 05/19/16 05:40 Creatinine 3.2 mg/dL (0.6-1.2) H 05/19/16 05:40 Est GFR ( Amer) TNP 05/19/16 05:40 Est GFR (Non-Af Amer) TNP 05/19/16 05:40 BUN/Creatinine Ratio 24.4 05/19/16 05:40 Glucose 143 mg/dL (70-105) H 05/19/16 05:40 Calcium 9.8 mg/dL (8.6-10.3) 05/19/16 05:40 Magnesium 3.0 mg/dL (1.9-2.7) H 05/16/16 15:35 Troponin I 0.03 ng/mL (0.01-0.05) 05/16/16 15:35 B-Natriuretic Peptide 1140.0 pg/mL (5.0-100.0) H 05/16/16 15:35 Triglycerides 178 mg/dL (<150) H 05/18/16 06:26 Cholesterol 120 mg/dL (<200) 05/18/16 06:26 LDL Cholesterol Direct 67 mg/dL (75-193) L 05/18/16 06:26 HDL Cholesterol 33 mg/dL (23-92) 05/18/16 06:26 Random Vancomycin 29.8 ug/mL (5.0-40.0) 05/19/16 05:40 - Physical Exam Vitals and I&O: Vital Signs Temp 98.0 F 05/19/16 16:00 Pulse 71 05/19/16 16:00 Resp 16 05/19/16 16:00 BP 124/56 05/19/16 16:00 Pulse Ox 100 05/19/16 16:00 Intake & Output 05/18/16 05/19/16 05/19/16 18:59 06:59 18:59 Intake Total 470 540 Balance 470 540 Intake: Intake, IV Amount 50 cefTRIAXone 1 gm In 50 Dextrose 5% 50 ml @ 100 mls/hr IV Q24H [facility] Rx#: [id number] Tube Feeding 420 TPN/PPN 420 Other 120 Other: # Voids 3 # Bowel Movements 1 Stool Characteristics Soft Active Medications: Current Medications Acetaminophen (Tylenol) 650 mg GT Q6HR PRN PRN Reason: Pain or Fever >101 Stop: 07/15/16 23:02 Last Admin: 05/18/16 20:23 Dose: 650 mg Albuterol/Ipratropium (Duoneb Neb) 3 ml HHN Q6HRT GABRIEL Stop: 07/17/16 18:59 Last Admin: 05/19/16 12:27 Dose: 3 ml Amiodarone HCl (Cordarone) 200 mg GT DAILY GABRIEL Stop: 07/16/16 08:59 Last Admin: 05/19/16 08:43 Dose: 200 mg Amlodipine Besylate (Norvasc) 10 mg GT DAILY GABRIEL Stop: 07/16/16 08:59 Last Admin: 05/19/16 08:49 Dose: 10 mg Atorvastatin Calcium (Lipitor) 10 mg GT DAILY GABRIEL PRN Reason: Protocol Stop: 07/17/16 08:59 Last Admin: 05/19/16 08:42 Dose: 10 mg Bisacodyl (Dulcolax 10 Mg Supp) 10 mg RC Q48HR GABRIEL Stop: 07/15/16 23:14 Last Admin: 05/17/16 00:38 Dose: 10 mg Ceftriaxone Sodium 1 gm/ (Dextrose) 50 mls @ 100 mls/hr IV Q24H GABRIEL Stop: 07/16/16 12:59 Last Admin: 05/19/16 12:55 Dose: 100 mls/hr Levothyroxine Sodium (Synthroid) 0.125 mg GT DAILY GABRIEL Stop: 07/16/16 08:59 Last Admin: 05/19/16 08:44 Dose: 0.125 mg Metoprolol Succinate (Toprol Xl) 25 mg PO DAILY GABRIEL Stop: 07/16/16 08:59 Last Admin: 05/19/16 08:44 Dose: 25 mg Mirtazapine (Remeron) 15 mg GT HS GABRIEL PRN Reason: Protocol Stop: 07/16/16 20:59 Last Admin: 05/18/16 20:23 Dose: 15 mg Miscellaneous (Pharmacy To Dose) 1 ea MC PRN GABRIEL Stop: 07/15/16 23:14 Miscellaneous (Vte Chemical Prophylaxis Screen/ Admission) 1 ea MC PRN PRN PRN Reason: PROTOCOL Stop: 07/16/16 17:00 Pantoprazole Sodium (Protonix) 40 mg GT DAILY GABRIEL Stop: 07/16/16 08:59 Last Admin: 05/19/16 08:41 Dose: 40 mg Vitamin B Complex/Vit C/Folic Acid (Vitamin B Complex W/Vitamin C) 1 tab GT DAILY GABRIEL Stop: 07/16/16 08:59 Last Admin: 05/19/16 08:43 Dose: 1 tab General: no acute distress, well developed, well nourished HEENT: atraumatic, normocephalic, PERRLA, EOMI Neck: supple, no thyromegaly, no lymphadenopathy Cardiovascular: S1S2, regular Lungs: clear to auscultation bilaterally, clear to percussion Abdomen: soft, no tender, no distended Extremities: other (Right forearm wound with surrounding redness), no cyanosis, no clubbing, no edema Infectious Disease Assmt/Plan - Assessment Assessment: right fore arm wound and cellulitis. Dementia. CKD 5 on HD. Afib. Coaulopathy. HTN COPD. Abnormal CT scan. - Plan Plan: will hold anticoagulation. resume anticoagulation when cleared by Dr Swan. MRi pending. Continue same treatment. F/u per consults. Wound care. Nutritional Asmnt/Malnutr-PDOC - Dietary Evaluation Malnutrition Findings (Please click <Entered> for more info): Nutritional Asmnt/Malnutrition Start: 05/17/16 13: 00 Text: Status: Complete Freq: Document 05/17/16 13:02 YOSHI (Rec: 05/17/16 13:32 YOSHI [email or web address]) Nutritional Asmnt/Malnutrition Patient General Information Nutritional Screening High Risk Screening Diagnosis ER: leukocytosis, blunt head trauma, on HD, abscess right forearm Pertinent Medical Hx/Surgical Hx ER: HTN, DM, CHF, asthma/COPD, renal failure on HD, thyroid disorder, arthritis, dementia, AHD, GERD, atrial fibrillation Subjective Information 70 year old female from SNF, unwitnessed fall with facial contusions prior to adm. Pt was asleep, unable to be woken up. Pt appears small frame with moderate fat and muscle wasting to temporals, cheeks, clavicles, chest noted. Obtained new weight during visit, 83.2lb, BMI 16.2. Discussed with Dr. Yohannes Bradshaw to increase Novasource Renal to 35ml/hr x 24hrs, providing 1680kcal, 76g protein, obtained order. Current Diet Order/ Nutrition Support Novasource Renal 45ml/hr x 16hrs Pertinent Medications Dulcolax, Synthroid, Protonix, Vitamin B complex w/Vitamin C Pertinent Labs 05/16: BUN 77H, creatinine 3.1H , glucose 129H, BNP 1140H Nutritional Hx/Data Height 12.7 cm Height (Calculated Centimeters) 12.7 Current Weight (lbs) 37.739 kg Weight (Calculated Kilograms) 37.7 Weight (Calculated Grams) 87531.9 [place] Body Weight 100lb Weight Status Underweight GI Symptoms Difficult in: Chewing Swallowing Food Allergies No Cultural/Ethnic/Anabaptist Belief Ukrainian. Usual diet at home Tube feeding dependent. Skin Integrity/Comment: ER and RN: right forearm abscess/ulceration Estimated Nutritional Goals Calories/Kcals/Kg IBW 115lb at BMI 22.5, 30- 35kcal/kg (on HD, malnutrition ) Kcals Calculated 1569-1831kcal/kg Protein g/kg: IBW 115lb at BMI 22.5, 1.2-1. 5g/kg (on HD, malnutrition, ? ulceration) Protein Calculated 63-78g Fluid: ml Per MD (hx. CHF) Nutritional Problem 2. Problem Problem Impaired nutrient utilization related to Etiology renal failure aeb Signs/Symptoms: pt is on HD 1. Problem Problem Increased kcal and prot needs related to Etiology renal failure, underweight/ malnutrition, skin integrity aeb Signs/Symptoms: on HD, ?ulceration right forearm, BMI 16.2, muscle/fat depletion Malnutrition Alert Body Fat Depletion (Severe) Mod to Severe Depletion Muscle Mass (Severe) Mod to Severe Depletion Intervention/Recommendation Comments 1. Recommend increase tube feeding rate Novasource Renal to 35ml/hr x 24hrs with consideration of hemodialysis, BMI <18.5, muscle/fat depletion, skin integrity. Expected Outcomes/Goals Expected Outcomes/Goals 1. Pt to meet 100% of estimated nutritional needs on tube feeding with tolerance. Physician Parameters for PEM Body Mass Index (BMI) 16 - 17.9 (Moderate)
--- NOTE | 2016-05-20 00:13 | Progress Notes ---
PULMONARY PROGRESS NOTE: PROBLEM LIST: 1. COPD, mild exacerbation. 2. Chronic renal failure, on hemodialysis. 3. History of recent fall with ecchymosis on the left face as well as left hand. SYMPTOMS: The patient is a little bit more awake, alert, though meaningful communication could not be done and no respiratory distress, etc. PHYSICAL EXAMINATION: VITAL SIGNS: The patient's recorded vitals: Temperature is 97.5, heart rate is in 80s, respirations 14, saturation 100% on 2 L. NECK: Neck veins could not be visualized. Good bilateral carotid upstroke. CHEST: Shows occasional rhonchi with diminished air entry. HEART: Regular. ABDOMEN: Soft, nontender. There is still lot of ecchymotic changes in the left hand. LABORATORY DATA: White count is 13.2, hemoglobin 10.9. Other laboratory studies are essentially unremarkable except for BUN and creatinine are high. ASSESSMENT: 1. The patient is stable with mild asthmatic bronchitis. 2. Alzheimer's dementia associated with history of recent fall with chronic renal failure, on hemodialysis. PLANS AND SUGGESTIONS: We will continue current respiratory care, inhalation treatment, aggressive dialysis. We will follow through lab and chest ____ in next few days. JOB# [id number]
[2016-05-20] MEDS: Albuterol/Ipratropium Neb 3 ML AERS HHN SCH ×4 (00:59→18:40)
[2016-05-20 08:55] LABS: % BASOPHILS 0.3 % (0.0-2.0); % EOSINOPHILS 2.5 % (0.0-5.0); % LYMPHOCYTES 11.6 % (20.0-50.0); % MONOCYTES 7.8 % (2.0-10.0); % NEUTROPHILS 77.8 % (40.0-80.0); HEMATOCRIT 30.9 % (35.0-45.0); HEMOGLOBIN 10.4 gm/dL (11.7-16.1); MEAN CELL VOLUME 85.5 fl (81-100); MEAN CORPUSCULAR HEMOGLOBIN 28.6 pg (27.0-31.0); MEAN CORPUSCULAR HGB CONC 33.5 pg (28.0-36.0); MEAN PLATELET VOLUME 9.1 fl; PLATELET COUNT 225 Th/cmm (150-400); RED BLOOD COUNT 3.61 Mil/cmm (3.80-5.20); RED CELL DISTRIBUTION WIDTH 16.4 % (11.5-20.0); WHITE BLOOD COUNT 14.7 Th/cmm (4.8-10.8)
[2016-05-20 08:56] LABS: NEUTROPHILE ABSOLUTE 11.5 Th/cmm (1.8-8.0)
[2016-05-20 09:18] LABS: ANION GAP 7.6 (7.0-16.0); BUN/CREATININE RATIO 27.4; CARBON DIOXIDE 26.3 mEq/L (21.0-31.0); CHLORIDE 99 mEq/L (98-107); CREATININE - SERUM 3.8 mg/dL (0.6-1.2); GLUCOSE 182 mg/dL (70-105); POTASSIUM SERUM 3.9 mEq/L (3.5-5.1); SODIUM SERUM 129 mEq/L (136-145)
[2016-05-20 09:33] LABS: BUN - UREA NITROGEN 104 mg/dL (7-25)
[2016-05-20] MEDS: Vitamin B Complex w/Vitamin C Tab GT SCH (09:37)
[2016-05-20] MEDS: Pantoprazole 40 mg/Packet GT SCH (09:38)
[2016-05-20] MEDS: Atorvastatin Calcium 10 MG TAB GT SCH (09:38)
[2016-05-20] MEDS: Levothyroxine 0.125 Mg Tab GT SCH (09:38)
--- NOTE | 2016-05-20 11:36 | General Progress Note ---
Subjective - Review of Systems Service Date: 05/20/16 Events since last encounter: Started on IV abx over weekend. Denies c/o on exam this AM Objective - Results Result Diagrams: 05/20/16 08:30 05/20/16 08:30 Recent Labs: Laboratory Last Values WBC 14.7 Th/cmm (4.8-10.8) H 05/20/16 08:30 RBC 3.61 Mil/cmm (3.80-5.20) L 05/20/16 08:30 Hgb 10.4 gm/dL (11.7-16.1) L 05/20/16 08:30 Hct 30.9 % (35.0-45.0) L 05/20/16 08:30 MCV 85.5 fl (81-100) 05/20/16 08:30 MCH 28.6 pg (27.0-31.0) 05/20/16 08:30 MCHC Differential 33.5 pg (28.0-36.0) 05/20/16 08:30 RDW 16.4 % (11.5-20.0) 05/20/16 08:30 Plt Count 225 Th/cmm (150-400) 05/20/16 08:30 MPV 9.1 fl 05/20/16 08:30 Neutrophils % 77.8 % (40.0-80.0) 05/20/16 08:30 Lymphocytes % 11.6 % (20.0-50.0) L 05/20/16 08:30 Monocytes % 7.8 % (2.0-10.0) 05/20/16 08:30 Eosinophils % 2.5 % (0.0-5.0) 05/20/16 08:30 Basophils % 0.3 % (0.0-2.0) 05/20/16 08:30 PT 14.3 SECONDS (9.5-11.5) H 05/19/16 05:40 INR 1.41 (0.5-1.4) H 05/19/16 05:40 Sodium 129 mEq/L (136-145) L 05/20/16 08:30 Potassium 3.9 mEq/L (3.5-5.1) 05/20/16 08:30 Chloride 99 mEq/L (98-107) 05/20/16 08:30 Carbon Dioxide 26.3 mEq/L (21.0-31.0) 05/20/16 08:30 Anion Gap 7.6 (7.0-16.0) 05/20/16 08:30 BUN 104 mg/dL (7-25) H* 05/20/16 08:30 Creatinine 3.8 mg/dL (0.6-1.2) H 05/20/16 08:30 Est GFR ( Amer) TNP 05/20/16 08:30 Est GFR (Non-Af Amer) TNP 05/20/16 08:30 BUN/Creatinine Ratio 27.4 05/20/16 08:30 Glucose 182 mg/dL (70-105) H 05/20/16 08:30 Hemoglobin A1c % 4.8 % (4.0-6.0) 05/20/16 08:30 Calcium 10.0 mg/dL (8.6-10.3) 05/20/16 08:30 Magnesium 3.0 mg/dL (1.9-2.7) H 05/16/16 15:35 Troponin I 0.03 ng/mL (0.01-0.05) 05/16/16 15:35 B-Natriuretic Peptide 1140.0 pg/mL (5.0-100.0) H 05/16/16 15:35 Triglycerides 178 mg/dL (<150) H 05/18/16 06:26 Cholesterol 120 mg/dL (<200) 05/18/16 06:26 LDL Cholesterol Direct 67 mg/dL (75-193) L 05/18/16 06:26 HDL Cholesterol 33 mg/dL (23-92) 05/18/16 06:26 Random Vancomycin 27.9 ug/mL (5.0-40.0) 05/20/16 08:30 - Physical Exam Vitals and I&O: Vital Signs Temp 98.0 F 05/20/16 08:00 Pulse 73 05/20/16 09:42 Resp 18 05/20/16 08:00 BP 155/58 05/20/16 09:42 Pulse Ox 100 05/20/16 08:00 Intake & Output 05/19/16 05/20/16 05/20/16 18:59 06:59 18:59 Intake Total 420 Balance 420 Intake: Tube Feeding 420 Other: # Voids 2 Active Medications: Current Medications Acetaminophen (Tylenol) 650 mg GT Q6HR PRN PRN Reason: Pain or Fever >101 Stop: 07/15/16 23:02 Last Admin: 05/18/16 20:23 Dose: 650 mg Albuterol/Ipratropium (Duoneb Neb) 3 ml HHN Q6HRT G[facility] Stop: 07/17/16 18:59 Last Admin: 05/20/16 07:02 Dose: 3 ml Amiodarone HCl (Cordarone) 200 mg GT DAILY G[facility]EL Stop: 07/16/16 08:59 Last Admin: 05/20/16 09:42 Dose: 200 mg Amlodipine Besylate (Norvasc) 10 mg GT DAILY G[facility]EL Stop: 07/16/16 08:59 Last Admin: 05/20/16 09:38 Dose: 10 mg Atorvastatin Calcium (Lipitor) 10 mg GT DAILY GABRIEL PRN Reason: Protocol Stop: 07/17/16 08:59 Last Admin: 05/20/16 09:38 Dose: 10 mg Bisacodyl (Dulcolax 10 Mg Supp) 10 mg RC Q48HR G[facility]RIEL Stop: 07/15/16 23:14 Last Admin: 05/17/16 00:38 Dose: 10 mg Ceftriaxone Sodium 1 gm/ (Dextrose) 50 mls @ 100 mls/hr IV Q24H [facility] Stop: 07/16/16 12:59 Last Admin: 05/19/16 12:55 Dose: 100 mls/hr Levothyroxine Sodium (Synthroid) 0.125 mg GT DAILY G[facility]RIEL Stop: 07/16/16 08:59 Last Admin: 05/20/16 09:38 Dose: 0.125 mg Metoprolol Succinate (Toprol Xl) 25 mg PO DAILY GABRIEL Stop: 07/16/16 08:59 Last Admin: 05/20/16 09:42 Dose: 25 mg Mirtazapine (Remeron) 15 mg GT HS GABRIEL PRN Reason: Protocol Stop: 07/16/16 20:59 Last Admin: 05/19/16 21:46 Dose: 15 mg Miscellaneous (Pharmacy To Dose) 1 ea MC PRN [facility]EL Stop: 07/15/16 23:14 Miscellaneous (Vte Chemical Prophylaxis Screen/ Admission) 1 ea PRN PRN PRN Reason: PROTOCOL Stop: 07/16/16 17:00 Pantoprazole Sodium (Protonix) 40 mg GT DAILY G[facility]RIEL Stop: 07/16/16 08:59 Last Admin: 05/20/16 09:38 Dose: 40 mg Vitamin B Complex/Vit C/Folic Acid (Vitamin B Complex W/Vitamin C) 1 tab GT DAILY GABRIEL Stop: 07/16/16 08:59 Last Admin: 05/20/16 09:37 Dose: 1 tab General: Alert Neck: Supple Cardiovascular: Regular rate Lungs: Clear to auscultation Abdomen: Soft Extremities: Edema Assessment/Plan - Assessment Assessment: ESRD on HD, MWF schedule Anemia secondary to ESRD Renal osteodystrophy Forearm cellulitis - Plan Plan: HD today, 3-4L UF as BP tolerates Hyponatremia likely from volume, f/u repeat labs in AM HGB in range, BP controlled Continue abx, renal dosing. ID onboard Nutritional Asmnt/Malnutr-PDOC - Dietary Evaluation Malnutrition Findings (Please click <Entered> for more info): Nutritional Asmnt/Malnutrition Start: 05/17/16 13: 00 Text: Status: Complete Freq: Document 05/17/16 13:02 GSUN (Rec: 05/17/16 13:32 [email or web address]) Nutritional Asmnt/Malnutrition Patient General Information Nutritional Screening High Risk Screening Diagnosis ER: leukocytosis, blunt head trauma, on HD, abscess right forearm Pertinent Medical Hx/Surgical Hx ER: HTN, DM, CHF, asthma/COPD, renal failure on HD, thyroid disorder, arthritis, dementia, AHD, GERD, atrial fibrillation Subjective Information 70 year old female from SNF, unwitnessed fall with facial contusions prior to adm. Pt was asleep, unable to be woken up. Pt appears small frame with moderate fat and muscle wasting to temporals, cheeks, clavicles, chest noted. Obtained new weight during visit, 83.2lb, BMI 16.2. Discussed with Dr. Yohannes Brasdhaw to increase Novasource Renal to 35ml/hr x 24hrs, providing 1680kcal, 76g protein, obtained order. Current Diet Order/ Nutrition Support Novasource Renal 45ml/hr x 16hrs Pertinent Medications Dulcolax, Synthroid, Protonix, Vitamin B complex w/Vitamin C Pertinent Labs 05/16: BUN 77H, creatinine 3.1H , glucose 129H, BNP 1140H Nutritional Hx/Data Height 12.7 cm Height (Calculated Centimeters) 12.7 Current Weight (lbs) 37.739 kg Weight (Calculated Kilograms) 37.7 Weight (Calculated Grams) 04186.9 [place] Body Weight 100lb Weight Status Underweight GI Symptoms Difficult in: Chewing Swallowing Food Allergies No Cultural/Ethnic/Sabianist Belief Swazi. Usual diet at home Tube feeding dependent. Skin Integrity/Comment: ER and RN: right forearm abscess/ulceration Estimated Nutritional Goals Calories/Kcals/Kg IBW 115lb at BMI 22.5, 30- 35kcal/kg (on HD, malnutrition ) Kcals Calculated 1569-1831kcal/kg Protein g/kg: IBW 115lb at BMI 22.5, 1.2-1. 5g/kg (on HD, malnutrition, ? ulceration) Protein Calculated 63-78g Fluid: ml Per MD (hx. CHF) Nutritional Problem 2. Problem Problem Impaired nutrient utilization related to Etiology renal failure aeb Signs/Symptoms: pt is on HD 1. Problem Problem Increased kcal and prot needs related to Etiology renal failure, underweight/ malnutrition, skin integrity aeb Signs/Symptoms: on HD, ?ulceration right forearm, BMI 16.2, muscle/fat depletion Malnutrition Alert Body Fat Depletion (Severe) Mod to Severe Depletion Muscle Mass (Severe) Mod to Severe Depletion Intervention/Recommendation Comments 1. Recommend increase tube feeding rate Novasource Renal to 35ml/hr x 24hrs with consideration of hemodialysis, BMI <18.5, muscle/fat depletion, skin integrity. Expected Outcomes/Goals Expected Outcomes/Goals 1. Pt to meet 100% of estimated nutritional needs on tube feeding with tolerance. Physician Parameters for PEM Body Mass Index (BMI) 16 - 17.9 (Moderate)
[2016-05-20 12:27] LABS: INR 1.1 (0.5-1.4)
--- NOTE | 2016-05-20 15:23 | Diagnostic Imaging Report ---
MRI of the brain without intravenous contrast HISTORY: Neoplasm, mass The exam is extremely limited and compromised due to marked patient motion artifact. There is enlargement of the ventricular system along with enlargement of cerebral sulci and subarachnoid cisterns reflecting atrophy. Somewhat more focal enlargement of the anterior portion of the left lateral ventricle and left frontal horn noted. Findings consistent with volume loss that may be related to changes of an old infarct. Periventricular increased signal is noted about the periphery of the lateral ventricles on T2 and FLAIR images. In addition, small hyperintense foci are scattered throughout the supratentorial white matter regions on the sequences. Findings may be associated with chronic small vessel ischemic disease. Diffusion images are unremarkable with no evidence of acute focal process or event. No obvious focal abnormality seen within the cerebellum. No obvious focal abnormality seen in the brainstem region. Suboptimal delineation of the right seventh/eighth nerve complex. The left seventh/eighth nerve complex appears normal. No other definite extra-axial masses or abnormal fluid collections. No abnormality seen in the region of the sella turcica/pituitary gland. IMPRESSION: 1. Extremely Limited/suboptimal exam due to marked patient motion artifact 2. No obvious acute abnormalities 3. Cerebral atrophy 4. Extensive supratentorial and periventricular white matter changes. The findings may be associated with chronic small vessel ischemic disease 5. Somewhat more focal enlargement involving the anterior portion of the left lateral ventricle and left frontal horn consistent with volume loss that may be related to an old infarct. Correlation with patient history is needed. If necessary, a CT scan may provide additional assessment.
--- NOTE | 2016-05-20 20:55 | Progress Notes ---
SUBJECTIVE: The patient was seen in the bed lying down. The patient is a poor historian, but otherwise no signs and symptoms of acute distress. OBJECTIVE: HEENT: Head is atraumatic, normocephalic. Eyes: Bilateral conjunctivae are clear for injection. NECK: Supple. No JVD. CARDIOVASCULAR: S1 and S2 heard, irregularly. PULMONARY: Mild inspiratory wheezing noted. GASTROINTESTINAL: Soft and nontender. The patient is getting tube feeding via her gastrostomy tube. MUSCULOSKELETAL: The patient has redness on the right upper arm. No edema, but some weakness, especially in the bilateral lower extremities noted. ASSESSMENT: 1. Right upper arm cellulitis. 2. Atrial fibrillation. 3. COPD. 4. Hypertension. 5. End-stage renal disease, hemodialysis dependent. 6. Hypertension. 7. Anemia. 8. Head trauma with abnormal CT scan that showed meningioma. PLAN: We will keep the patient here in the Med/Surg floor and we will follow up. The patient will be having an MRI of the brain for today and to follow up for the abnormal CT scan results. We will also follow up with ID doctor for her antibiotic management and we will follow up with the neurologist regarding the MRI result. JOB# [id number]
[2016-05-21] MEDS: Albuterol/Ipratropium Neb 3 ML AERS HHN SCH ×4 (00:45→19:12)
--- NOTE | 2016-05-21 06:01 | Progress Notes ---
PULMONARY PROGRESS NOTE: PROBLEM LIST: 1. Mild acute exacerbation of COPD. 2. Chronic renal failure with hemodialysis. 3. History of fall with some ecchymosis on left side of the face and arm. SYMPTOMS: Nil. The patient is awake, but no meaningful communication could be done. Currently on a nasal O2. No respiratory distress. PHYSICAL EXAMINATION: VITAL SIGNS: Temperature is 98, heart rate is 70s, respirations 12, saturation is 98% on room air. ENT: Shows no new changes, still there is ecchymosis on the areas on the left hand. CHEST: Shows occasional rhonchi with diminished air entry. HEART: Regular. LABORATORY DATA: White count is ____, slightly trending up, hemoglobin 10.4 and the patient's platelets 225. Sodium is 129, BUN is 104. BUN and creatinine are slightly higher side. ASSESSMENT: The patient is clinically stable ____ respiratory parker. PLANS AND SUGGESTIONS: We will continue current respiratory care, etc., and might require to have aggressive dialysis with fluid removal and go from there. JOB# [id number]
[2016-05-21 07:21] LABS: % BASOPHILS 0.8 % (0.0-2.0); % LYMPHOCYTES 11.9 % (20.0-50.0); % MONOCYTES 11.6 % (2.0-10.0); % NEUTROPHILS 72.7 % (40.0-80.0); HEMATOCRIT 29.8 % (35.0-45.0); HEMOGLOBIN 10.1 gm/dL (11.7-16.1); MEAN CELL VOLUME 85.1 fl (81-100); MEAN CORPUSCULAR HEMOGLOBIN 28.8 pg (27.0-31.0); MEAN CORPUSCULAR HGB CONC 33.9 pg (28.0-36.0); MEAN PLATELET VOLUME 8.9 fl; NEUTROPHILE ABSOLUTE 6.5 Th/cmm (1.8-8.0); PLATELET COUNT 238 Th/cmm (150-400); RED CELL DISTRIBUTION WIDTH 16.4 % (11.5-20.0)
[2016-05-21 07:22] LABS: ANION GAP 10.9 (7.0-16.0); BUN - UREA NITROGEN 35 mg/dL (7-25); BUN/CREATININE RATIO 20.6; CALCIUM SERUM 9.6 mg/dL (8.6-10.3); CARBON DIOXIDE 29.1 mEq/L (21.0-31.0); CHLORIDE 109 mEq/L (98-107); CREATININE - SERUM 1.7 mg/dL (0.6-1.2); GLUCOSE 146 mg/dL (70-105)
[2016-05-21 07:29] LABS: SODIUM SERUM 145 mEq/L (136-145)
[2016-05-21 07:36] LABS: WHITE BLOOD COUNT 9.1 Th/cmm (4.8-10.8)
[2016-05-21] MEDS: Atorvastatin Calcium 10 MG TAB GT SCH (08:20)
[2016-05-21] MEDS: Levothyroxine 0.125 Mg Tab GT SCH (08:20)
[2016-05-21] MEDS: Pantoprazole 40 mg/Packet GT SCH (08:21)
[2016-05-21] MEDS: Silver Antimicrobial Wound Gel 0.25 oz Tube TP SCH (08:21)
[2016-05-21] MEDS: Vitamin B Complex w/Vitamin C Tab GT SCH (08:21)
--- NOTE | 2016-05-21 11:50 | General Progress Note ---
Subjective - Review of Systems Service Date: 05/21/16 Subjective: Denies c/o, comfortable this AM, tolerated HD well on 05/20 w/ 2.8L removed. Objective - Results Result Diagrams: 05/21/16 06:30 05/21/16 06:30 Recent Labs: Laboratory Last Values WBC 9.1 Th/cmm (4.8-10.8) D 05/21/16 06:30 RBC 3.50 Mil/cmm (3.80-5.20) L 05/21/16 06:30 Hgb 10.1 gm/dL (11.7-16.1) L 05/21/16 06:30 Hct 29.8 % (35.0-45.0) L 05/21/16 06:30 MCV 85.1 fl (81-100) 05/21/16 06:30 MCH 28.8 pg (27.0-31.0) 05/21/16 06:30 MCHC Differential 33.9 pg (28.0-36.0) 05/21/16 06:30 RDW 16.4 % (11.5-20.0) 05/21/16 06:30 Plt Count 238 Th/cmm (150-400) 05/21/16 06:30 MPV 8.9 fl 05/21/16 06:30 Neutrophils % 72.7 % (40.0-80.0) 05/21/16 06:30 Lymphocytes % 11.9 % (20.0-50.0) L 05/21/16 06:30 Monocytes % 11.6 % (2.0-10.0) H 05/21/16 06:30 Eosinophils % 3.0 % (0.0-5.0) 05/21/16 06:30 Basophils % 0.8 % (0.0-2.0) 05/21/16 06:30 PT 11.0 SECONDS (9.5-11.5) 05/20/16 12:00 INR 1.10 (0.5-1.4) 05/20/16 12:00 Sodium 145 mEq/L (136-145) D 05/21/16 06:30 Potassium 4.0 mEq/L (3.5-5.1) 05/21/16 06:30 Chloride 109 mEq/L (98-107) H 05/21/16 06:30 Carbon Dioxide 29.1 mEq/L (21.0-31.0) 05/21/16 06:30 Anion Gap 10.9 (7.0-16.0) 05/21/16 06:30 BUN 35 mg/dL (7-25) H 05/21/16 06:30 Creatinine 1.7 mg/dL (0.6-1.2) H 05/21/16 06:30 Est GFR ( Amer) TNP 05/21/16 06:30 Est GFR (Non-Af Amer) TNP 05/21/16 06:30 BUN/Creatinine Ratio 20.6 05/21/16 06:30 Glucose 146 mg/dL (70-105) H 05/21/16 06:30 Hemoglobin A1c % 4.8 % (4.0-6.0) 05/20/16 08:30 Calcium 9.6 mg/dL (8.6-10.3) 05/21/16 06:30 Magnesium 3.0 mg/dL (1.9-2.7) H 05/16/16 15:35 Troponin I 0.03 ng/mL (0.01-0.05) 05/16/16 15:35 B-Natriuretic Peptide 1140.0 pg/mL (5.0-100.0) H 05/16/16 15:35 Triglycerides 178 mg/dL (<150) H 05/18/16 06:26 Cholesterol 120 mg/dL (<200) 05/18/16 06:26 LDL Cholesterol Direct 67 mg/dL (75-193) L 05/18/16 06:26 HDL Cholesterol 33 mg/dL (23-92) 05/18/16 06:26 Random Vancomycin 19.5 ug/mL (5.0-40.0) 05/21/16 06:30 - Physical Exam Vitals and I&O: Vital Signs Temp 98.8 F 05/21/16 04:00 Pulse 81 05/21/16 08:20 Resp 20 05/21/16 09:02 BP 144/53 05/21/16 08:20 Pulse Ox 98 05/21/16 08:00 Intake & Output 05/20/16 05/21/16 05/21/16 18:59 06:59 18:59 Intake Total 470 Balance 470 Intake: Intake, IV Amount 50 cefTRIAXone 1 gm In 50 Dextrose 5% 50 ml @ 100 mls/hr IV Q24H [facility] Rx#: [id number] Other 420 Other: # Voids 2 Active Medications: Current Medications Acetaminophen (Tylenol) 650 mg GT Q6HR PRN PRN Reason: Pain or Fever >101 Stop: 07/15/16 23:02 Last Admin: 05/18/16 20:23 Dose: 650 mg Albuterol/Ipratropium (Duoneb Neb) 3 ml HHN Q6HRT GABRIEL Stop: 07/17/16 18:59 Last Admin: 05/21/16 07:59 Dose: 3 ml Amiodarone HCl (Cordarone) 200 mg GT DAILY GABRIEL Stop: 07/16/16 08:59 Last Admin: 05/21/16 08:20 Dose: 200 mg Amlodipine Besylate (Norvasc) 10 mg GT DAILY GABRIEL Stop: 07/16/16 08:59 Last Admin: 05/21/16 08:20 Dose: 10 mg Atorvastatin Calcium (Lipitor) 10 mg GT DAILY GABRIEL PRN Reason: Protocol Stop: 07/17/16 08:59 Last Admin: 05/21/16 08:20 Dose: 10 mg Bisacodyl (Dulcolax 10 Mg Supp) 10 mg RC Q48HR GABRIEL Stop: 07/15/16 23:14 Last Admin: 05/20/16 23:26 Dose: 10 mg Ceftriaxone Sodium 1 gm/ (Dextrose) 50 mls @ 100 mls/hr IV Q24H GABRIEL Stop: 07/16/16 12:59 Last Infusion: 05/20/16 19:49 Dose: Infused Levothyroxine Sodium (Synthroid) 0.125 mg GT DAILY [facility] Stop: 07/16/16 08:59 Last Admin: 05/21/16 08:20 Dose: 0.125 mg Metoprolol Succinate (Toprol Xl) 25 mg PO DAILY [facility] Stop: 07/16/16 08:59 Last Admin: 05/21/16 08:19 Dose: 25 mg Mirtazapine (Remeron) 15 mg GT HS GABRIEL PRN Reason: Protocol Stop: 07/16/16 20:59 Last Admin: 05/20/16 21:00 Dose: 15 mg Miscellaneous (Pharmacy To Dose) 1 ea MC PRN [facility] Stop: 07/15/16 23:14 Miscellaneous (Vte Chemical Prophylaxis Screen/ Admission) 1 ea MC PRN PRN PRN Reason: PROTOCOL Stop: 07/16/16 17:00 Pantoprazole Sodium (Protonix) 40 mg GT DAILY GABRIEL Stop: 07/16/16 08:59 Last Admin: 05/21/16 08:21 Dose: 40 mg Vitamin B Complex/Vit C/Folic Acid (Vitamin B Complex W/Vitamin C) 1 tab GT DAILY GABRIEL Stop: 07/16/16 08:59 Last Admin: 05/21/16 08:21 Dose: 1 tab Wound Care/Dressing Products (Silvasorb) 1 appl TP DAILY GABRIEL Stop: 07/20/16 08:59 Last Admin: 05/21/16 08:21 Dose: 1 appl General: Alert, Oriented x3 HEENT: Atraumatic Neck: Supple Cardiovascular: Regular rate Lungs: Clear to auscultation Abdomen: Bowel sounds, Soft Extremities: Edema Assessment/Plan - Assessment Assessment: ESRD on HD, MWF schedule. Access TC. 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 Good clearance w/ HD on 05/20 Hyponatremia corrected w/ UF HGB in range, BP controlled. Continue abx, renal dosing Nutritional Asmnt/Malnutr-PDOC - Dietary Evaluation Malnutrition Findings (Please click <Entered> for more info): Nutritional Asmnt/Malnutrition Start: 05/17/16 13: 00 Text: Status: Complete Freq: Document 05/17/16 13:02 GSUN (Rec: 05/17/16 13:32 [email or web address]) Nutritional Asmnt/Malnutrition Patient General Information Nutritional Screening High Risk Screening Diagnosis ER: leukocytosis, blunt head trauma, on HD, abscess right forearm Pertinent Medical Hx/Surgical Hx ER: HTN, DM, CHF, asthma/COPD, renal failure on HD, thyroid disorder, arthritis, dementia, AHD, GERD, atrial fibrillation Subjective Information 70 year old female from SNF, unwitnessed fall with facial contusions prior to adm. Pt was asleep, unable to be woken up. Pt appears small frame with moderate fat and muscle wasting to temporals, cheeks, clavicles, chest noted. Obtained new weight during visit, 83.2lb, BMI 16.2. Discussed with Dr. Yohannes Bradshaw to increase Novasource Renal to 35ml/hr x 24hrs, providing 1680kcal, 76g protein, obtained order. Current Diet Order/ Nutrition Support Novasource Renal 45ml/hr x 16hrs Pertinent Medications Dulcolax, Synthroid, Protonix, Vitamin B complex w/Vitamin C Pertinent Labs 05/16: BUN 77H, creatinine 3.1H , glucose 129H, BNP 1140H Nutritional Hx/Data Height 12.7 cm Height (Calculated Centimeters) 12.7 Current Weight (lbs) 37.739 kg Weight (Calculated Kilograms) 37.7 Weight (Calculated Grams) 00580.9 [place] Body Weight 100lb Weight Status Underweight GI Symptoms Difficult in: Chewing Swallowing Food Allergies No Cultural/Ethnic/Christian Belief [place]an. Usual diet at home Tube feeding dependent. Skin Integrity/Comment: ER and RN: right forearm abscess/ulceration Estimated Nutritional Goals Calories/Kcals/Kg IBW 115lb at BMI 22.5, 30- 35kcal/kg (on HD, malnutrition ) Kcals Calculated 1569-1831kcal/kg Protein g/kg: IBW 115lb at BMI 22.5, 1.2-1. 5g/kg (on HD, malnutrition, ? ulceration) Protein Calculated 63-78g Fluid: ml Per MD (hx. CHF) Nutritional Problem 2. Problem Problem Impaired nutrient utilization related to Etiology renal failure aeb Signs/Symptoms: pt is on HD 1. Problem Problem Increased kcal and prot needs related to Etiology renal failure, underweight/ malnutrition, skin integrity aeb Signs/Symptoms: on HD, ?ulceration right forearm, BMI 16.2, muscle/fat depletion Malnutrition Alert Body Fat Depletion (Severe) Mod to Severe Depletion Muscle Mass (Severe) Mod to Severe Depletion Intervention/Recommendation Comments 1. Recommend increase tube feeding rate Novasource Renal to 35ml/hr x 24hrs with consideration of hemodialysis, BMI <18.5, muscle/fat depletion, skin integrity. Expected Outcomes/Goals Expected Outcomes/Goals 1. Pt to meet 100% of estimated nutritional needs on tube feeding with tolerance. Physician Parameters for PEM Body Mass Index (BMI) 16 - 17.9 (Moderate)
--- NOTE | 2016-05-21 12:07 | Infectious Disease Prog Note ---
Infectious Disease Subjective - Review of Systems Service Date: 05/21/16 Subjective: no new change. Infectious Disease Objective - Results Result Diagrams: 05/21/16 06:30 05/21/16 06:30 Recent Labs: Laboratory Last Values WBC 9.1 Th/cmm (4.8-10.8) D 05/21/16 06:30 RBC 3.50 Mil/cmm (3.80-5.20) L 05/21/16 06:30 Hgb 10.1 gm/dL (11.7-16.1) L 05/21/16 06:30 Hct 29.8 % (35.0-45.0) L 05/21/16 06:30 MCV 85.1 fl (81-100) 05/21/16 06:30 MCH 28.8 pg (27.0-31.0) 05/21/16 06:30 MCHC Differential 33.9 pg (28.0-36.0) 05/21/16 06:30 RDW 16.4 % (11.5-20.0) 05/21/16 06:30 Plt Count 238 Th/cmm (150-400) 05/21/16 06:30 MPV 8.9 fl 05/21/16 06:30 Neutrophils % 72.7 % (40.0-80.0) 05/21/16 06:30 Lymphocytes % 11.9 % (20.0-50.0) L 05/21/16 06:30 Monocytes % 11.6 % (2.0-10.0) H 05/21/16 06:30 Eosinophils % 3.0 % (0.0-5.0) 05/21/16 06:30 Basophils % 0.8 % (0.0-2.0) 05/21/16 06:30 PT 11.0 SECONDS (9.5-11.5) 05/20/16 12:00 INR 1.10 (0.5-1.4) 05/20/16 12:00 Sodium 145 mEq/L (136-145) D 05/21/16 06:30 Potassium 4.0 mEq/L (3.5-5.1) 05/21/16 06:30 Chloride 109 mEq/L (98-107) H 05/21/16 06:30 Carbon Dioxide 29.1 mEq/L (21.0-31.0) 05/21/16 06:30 Anion Gap 10.9 (7.0-16.0) 05/21/16 06:30 BUN 35 mg/dL (7-25) H 05/21/16 06:30 Creatinine 1.7 mg/dL (0.6-1.2) H 05/21/16 06:30 Est GFR ( Amer) TNP 05/21/16 06:30 Est GFR (Non-Af Amer) TNP 05/21/16 06:30 BUN/Creatinine Ratio 20.6 05/21/16 06:30 Glucose 146 mg/dL (70-105) H 05/21/16 06:30 Hemoglobin A1c % 4.8 % (4.0-6.0) 05/20/16 08:30 Calcium 9.6 mg/dL (8.6-10.3) 05/21/16 06:30 Magnesium 3.0 mg/dL (1.9-2.7) H 05/16/16 15:35 Troponin I 0.03 ng/mL (0.01-0.05) 05/16/16 15:35 B-Natriuretic Peptide 1140.0 pg/mL (5.0-100.0) H 05/16/16 15:35 Triglycerides 178 mg/dL (<150) H 05/18/16 06:26 Cholesterol 120 mg/dL (<200) 05/18/16 06:26 LDL Cholesterol Direct 67 mg/dL (75-193) L 05/18/16 06:26 HDL Cholesterol 33 mg/dL (23-92) 05/18/16 06:26 Random Vancomycin 19.5 ug/mL (5.0-40.0) 05/21/16 06:30 - Physical Exam Vitals and I&O: Vital Signs Temp 98.8 F 05/21/16 04:00 Pulse 81 05/21/16 08:20 Resp 20 05/21/16 09:02 BP 144/53 05/21/16 08:20 Pulse Ox 98 05/21/16 08:00 Intake & Output 05/20/16 05/21/16 05/21/16 18:59 06:59 18:59 Intake Total 470 Balance 470 Intake: Intake, IV Amount 50 cefTRIAXone 1 gm In 50 Dextrose 5% 50 ml @ 100 mls/hr IV Q24H REPLACED BY [facility] Rx#: [id number] Other 420 Other: # Voids 2 Active Medications: Current Medications Acetaminophen (Tylenol) 650 mg GT Q6HR PRN PRN Reason: Pain or Fever >101 Stop: 07/15/16 23:02 Last Admin: 05/18/16 20:23 Dose: 650 mg Albuterol/Ipratropium (Duoneb Neb) 3 ml HHN Q6HRT [facility] Stop: 07/17/16 18:59 Last Admin: 05/21/16 07:59 Dose: 3 ml Amiodarone HCl (Cordarone) 200 mg GT DAILY [facility] Stop: 07/16/16 08:59 Last Admin: 05/21/16 08:20 Dose: 200 mg Amlodipine Besylate (Norvasc) 10 mg GT DAILY [facility] Stop: 07/16/16 08:59 Last Admin: 05/21/16 08:20 Dose: 10 mg Atorvastatin Calcium (Lipitor) 10 mg GT DAILY [facility] PRN Reason: Protocol Stop: 07/17/16 08:59 Last Admin: 05/21/16 08:20 Dose: 10 mg Bisacodyl (Dulcolax 10 Mg Supp) 10 mg RC Q48HR REPLACED BY [facility] Stop: 07/15/16 23:14 Last Admin: 05/20/16 23:26 Dose: 10 mg Ceftriaxone Sodium 1 gm/ (Dextrose) 50 mls @ 100 mls/hr IV Q24H REPLACED BY [facility] Stop: 07/16/16 12:59 Last Infusion: 05/20/16 19:49 Dose: Infused Levothyroxine Sodium (Synthroid) 0.125 mg GT DAILY REPLACED BY [facility] Stop: 07/16/16 08:59 Last Admin: 05/21/16 08:20 Dose: 0.125 mg Metoprolol Succinate (Toprol Xl) 25 mg PO DAILY REPLACED BY [facility] Stop: 07/16/16 08:59 Last Admin: 05/21/16 08:19 Dose: 25 mg Mirtazapine (Remeron) 15 mg GT HS [facility] PRN Reason: Protocol Stop: 07/16/16 20:59 Last Admin: 05/20/16 21:00 Dose: 15 mg Miscellaneous (Pharmacy To Dose) 1 ea PRN [facility] Stop: 07/15/16 23:14 Miscellaneous (Vte Chemical Prophylaxis Screen/ Admission) 1 ea PRN PRN PRN Reason: PROTOCOL Stop: 07/16/16 17:00 Pantoprazole Sodium (Protonix) 40 mg GT DAILY [facility] Stop: 07/16/16 08:59 Last Admin: 05/21/16 08:21 Dose: 40 mg Vitamin B Complex/Vit C/Folic Acid (Vitamin B Complex W/Vitamin C) 1 tab GT DAILY [facility] Stop: 07/16/16 08:59 Last Admin: 05/21/16 08:21 Dose: 1 tab Wound Care/Dressing Products (Silvasorb) 1 appl TP DAILY [facility] Stop: 07/20/16 08:59 Last Admin: 05/21/16 08:21 Dose: 1 appl Infectious Disease Assmt/Plan - Assessment Assessment: right fore arm wound and cellulitis. Dementia. CKD 5 on HD. Afib. Coaulopathy. HTN COPD. Abnormal CT scan. - Plan Plan: will hold anticoagulation. resume anticoagulation when cleared by Dr Swan. MRi pending. Continue same treatment. F/u per consults. Wound care. DW Dr Devendra Bhardwaj, he asked for clearance from Dr Swan. Nutritional Asmnt/Malnutr-PDOC - Dietary Evaluation Malnutrition Findings (Please click <Entered> for more info): Nutritional Asmnt/Malnutrition Start: 05/17/16 13: 00 Text: Status: Complete Freq: Document 05/17/16 13:02 GSUN (Rec: 05/17/16 13:32 [email or web address] [email or web address]) Nutritional Asmnt/Malnutrition Patient General Information Nutritional Screening High Risk Screening Diagnosis ER: leukocytosis, blunt head trauma, on HD, abscess right forearm Pertinent Medical Hx/Surgical Hx ER: HTN, DM, CHF, asthma/COPD, renal failure on HD, thyroid disorder, arthritis, dementia, AHD, GERD, atrial fibrillation Subjective Information 70 year old female from SNF, unwitnessed fall with facial contusions prior to adm. Pt was asleep, unable to be woken up. Pt appears small frame with moderate fat and muscle wasting to temporals, cheeks, clavicles, chest noted. Obtained new weight during visit, 83.2lb, BMI 16.2. Discussed with Dr. Yohannes Bradshaw to increase Novasource Renal to 35ml/hr x 24hrs, providing 1680kcal, 76g protein, obtained order. Current Diet Order/ Nutrition Support Novasource Renal 45ml/hr x 16hrs Pertinent Medications Dulcolax, Synthroid, Protonix, Vitamin B complex w/Vitamin C Pertinent Labs 05/16: BUN 77H, creatinine 3.1H , glucose 129H, BNP 1140H Nutritional Hx/Data Height 12.7 cm Height (Calculated Centimeters) 12.7 Current Weight (lbs) 37.739 kg Weight (Calculated Kilograms) 37.7 Weight (Calculated Grams) 76436.9 [place] Body Weight 100lb Weight Status Underweight GI Symptoms Difficult in: Chewing Swallowing Food Allergies No Cultural/Ethnic/Zoroastrianism Belief Setswana. Usual diet at home Tube feeding dependent. Skin Integrity/Comment: ER and RN: right forearm abscess/ulceration Estimated Nutritional Goals Calories/Kcals/Kg IBW 115lb at BMI 22.5, 30- 35kcal/kg (on HD, malnutrition ) Kcals Calculated 1569-1831kcal/kg Protein g/kg: IBW 115lb at BMI 22.5, 1.2-1. 5g/kg (on HD, malnutrition, ? ulceration) Protein Calculated 63-78g Fluid: ml Per MD (hx. CHF) Nutritional Problem 2. Problem Problem Impaired nutrient utilization related to Etiology renal failure aeb Signs/Symptoms: pt is on HD 1. Problem Problem Increased kcal and prot needs related to Etiology renal failure, underweight/ malnutrition, skin integrity aeb Signs/Symptoms: on HD, ?ulceration right forearm, BMI 16.2, muscle/fat depletion Malnutrition Alert Body Fat Depletion (Severe) Mod to Severe Depletion Muscle Mass (Severe) Mod to Severe Depletion Intervention/Recommendation Comments 1. Recommend increase tube feeding rate Novasource Renal to 35ml/hr x 24hrs with consideration of hemodialysis, BMI <18.5, muscle/fat depletion, skin integrity. Expected Outcomes/Goals Expected Outcomes/Goals 1. Pt to meet 100% of estimated nutritional needs on tube feeding with tolerance. Physician Parameters for PEM Body Mass Index (BMI) 16 - 17.9 (Moderate)
--- NOTE | 2016-05-21 19:56 | Infectious Disease Prog Note ---
Infectious Disease Subjective - Review of Systems Service Date: 05/21/16 Subjective: no new change. Infectious Disease Objective - Results Result Diagrams: 05/21/16 06:30 05/21/16 06:30 Recent Labs: Laboratory Last Values WBC 9.1 Th/cmm (4.8-10.8) D 05/21/16 06:30 RBC 3.50 Mil/cmm (3.80-5.20) L 05/21/16 06:30 Hgb 10.1 gm/dL (11.7-16.1) L 05/21/16 06:30 Hct 29.8 % (35.0-45.0) L 05/21/16 06:30 MCV 85.1 fl (81-100) 05/21/16 06:30 MCH 28.8 pg (27.0-31.0) 05/21/16 06:30 MCHC Differential 33.9 pg (28.0-36.0) 05/21/16 06:30 RDW 16.4 % (11.5-20.0) 05/21/16 06:30 Plt Count 238 Th/cmm (150-400) 05/21/16 06:30 MPV 8.9 fl 05/21/16 06:30 Neutrophils % 72.7 % (40.0-80.0) 05/21/16 06:30 Lymphocytes % 11.9 % (20.0-50.0) L 05/21/16 06:30 Monocytes % 11.6 % (2.0-10.0) H 05/21/16 06:30 Eosinophils % 3.0 % (0.0-5.0) 05/21/16 06:30 Basophils % 0.8 % (0.0-2.0) 05/21/16 06:30 PT 11.0 SECONDS (9.5-11.5) 05/20/16 12:00 INR 1.10 (0.5-1.4) 05/20/16 12:00 Sodium 145 mEq/L (136-145) D 05/21/16 06:30 Potassium 4.0 mEq/L (3.5-5.1) 05/21/16 06:30 Chloride 109 mEq/L (98-107) H 05/21/16 06:30 Carbon Dioxide 29.1 mEq/L (21.0-31.0) 05/21/16 06:30 Anion Gap 10.9 (7.0-16.0) 05/21/16 06:30 BUN 35 mg/dL (7-25) H 05/21/16 06:30 Creatinine 1.7 mg/dL (0.6-1.2) H 05/21/16 06:30 Est GFR ( Amer) TNP 05/21/16 06:30 Est GFR (Non-Af Amer) TNP 05/21/16 06:30 BUN/Creatinine Ratio 20.6 05/21/16 06:30 Glucose 146 mg/dL (70-105) H 05/21/16 06:30 Hemoglobin A1c % 4.8 % (4.0-6.0) 05/20/16 08:30 Calcium 9.6 mg/dL (8.6-10.3) 05/21/16 06:30 Magnesium 3.0 mg/dL (1.9-2.7) H 05/16/16 15:35 Troponin I 0.03 ng/mL (0.01-0.05) 05/16/16 15:35 B-Natriuretic Peptide 1140.0 pg/mL (5.0-100.0) H 05/16/16 15:35 Triglycerides 178 mg/dL (<150) H 05/18/16 06:26 Cholesterol 120 mg/dL (<200) 05/18/16 06:26 LDL Cholesterol Direct 67 mg/dL (75-193) L 05/18/16 06:26 HDL Cholesterol 33 mg/dL (23-92) 05/18/16 06:26 Random Vancomycin 19.5 ug/mL (5.0-40.0) 05/21/16 06:30 - Physical Exam Vitals and I&O: Vital Signs Temp 98.7 F 05/21/16 15:47 Pulse 76 05/21/16 19:12 Resp 20 05/21/16 19:12 BP 137/55 05/21/16 15:47 Pulse Ox 97 05/21/16 19:12 Intake & Output 05/21/16 05/21/16 05/22/16 06:59 18:59 06:59 Intake Total 470 300 Balance 470 300 Intake: Intake, IV Amount 50 300 cefTRIAXone 1 gm In 50 50 Dextrose 5% 50 ml @ 100 mls/hr IV Q24H [facility] Rx#: [id number] Other 420 Other: # Voids 2 Active Medications: Current Medications Acetaminophen (Tylenol) 650 mg GT Q6HR PRN PRN Reason: Pain or Fever >101 Stop: 07/15/16 23:02 Last Admin: 05/18/16 20:23 Dose: 650 mg Albuterol/Ipratropium (Duoneb Neb) 3 ml HHN Q6HRT [facility] Stop: 07/17/16 18:59 Last Admin: 05/21/16 19:12 Dose: 3 ml Amiodarone HCl (Cordarone) 200 mg GT DAILY [facility] Stop: 07/16/16 08:59 Last Admin: 05/21/16 08:20 Dose: 200 mg Amlodipine Besylate (Norvasc) 10 mg GT DAILY [facility] Stop: 07/16/16 08:59 Last Admin: 05/21/16 08:20 Dose: 10 mg Atorvastatin Calcium (Lipitor) 10 mg GT DAILY [facility] PRN Reason: Protocol Stop: 07/17/16 08:59 Last Admin: 05/21/16 08:20 Dose: 10 mg Bisacodyl (Dulcolax 10 Mg Supp) 10 mg RC Q48HR [facility] Stop: 07/15/16 23:14 Last Admin: 05/20/16 23:26 Dose: 10 mg Ceftriaxone Sodium 1 gm/ (Dextrose) 50 mls @ 100 mls/hr IV Q24H [facility] Stop: 07/16/16 12:59 Last Infusion: 05/21/16 17:50 Dose: Infused Levothyroxine Sodium (Synthroid) 0.125 mg GT DAILY [facility] Stop: 07/16/16 08:59 Last Admin: 05/21/16 08:20 Dose: 0.125 mg Metoprolol Succinate (Toprol Xl) 25 mg PO DAILY [facility] Stop: 07/16/16 08:59 Last Admin: 05/21/16 08:19 Dose: 25 mg Mirtazapine (Remeron) 15 mg GT HS [facility] PRN Reason: Protocol Stop: 07/16/16 20:59 Last Admin: 05/20/16 21:00 Dose: 15 mg Miscellaneous (Pharmacy To Dose) 1 ea MC PRN [facility] Stop: 07/15/16 23:14 Miscellaneous (Vte Chemical Prophylaxis Screen/ Admission) 1 ea PRN PRN PRN Reason: PROTOCOL Stop: 07/16/16 17:00 Pantoprazole Sodium (Protonix) 40 mg GT DAILY [facility] Stop: 07/16/16 08:59 Last Admin: 05/21/16 08:21 Dose: 40 mg Vitamin B Complex/Vit C/Folic Acid (Vitamin B Complex W/Vitamin C) 1 tab GT DAILY [facility] Stop: 07/16/16 08:59 Last Admin: 05/21/16 08:21 Dose: 1 tab Wound Care/Dressing Products (Silvasorb) 1 appl TP DAILY [facility] Stop: 07/20/16 08:59 Last Admin: 05/21/16 08:21 Dose: 1 appl General: no acute distress, well developed, well nourished HEENT: atraumatic, normocephalic, PERRLA, EOMI, moist mucous membrane Neck: supple, no thyromegaly, no lymphadenopathy Cardiovascular: S1S2, regular Lungs: clear to auscultation bilaterally, clear to percussion Abdomen: soft, no tender, no distended Extremities: other (right fore arm wound.), no cyanosis, no clubbing, no edema Infectious Disease Assmt/Plan - Assessment Assessment: right fore arm wound and cellulitis. Dementia. CKD 5 on HD. Afib. Coaulopathy. HTN COPD. No evidence of hemorrhage in brain as per MRI. - Plan Plan: will hold anticoagulation. resume anticoagulation when cleared by Dr Swan. MRi pending. Continue same treatment. F/u per consults. Wound care. DW Dr Devendra Bhardwaj, he asked for clearance from Dr Swan. Addendum: Dr Swan agreed to resume anticoagulation. Nutritional Asmnt/Malnutr-PDOC - Dietary Evaluation Malnutrition Findings (Please click <Entered> for more info): Nutritional Asmnt/Malnutrition Start: 05/17/16 13: 00 Text: Status: Complete Freq: Document 05/17/16 13:02 GSUN (Rec: 05/17/16 13:32 [email or web address] [email or web address]) Nutritional Asmnt/Malnutrition Patient General Information Nutritional Screening High Risk Screening Diagnosis ER: leukocytosis, blunt head trauma, on HD, abscess right forearm Pertinent Medical Hx/Surgical Hx ER: HTN, DM, CHF, asthma/COPD, renal failure on HD, thyroid disorder, arthritis, dementia, AHD, GERD, atrial fibrillation Subjective Information 70 year old female from SNF, unwitnessed fall with facial contusions prior to adm. Pt was asleep, unable to be woken up. Pt appears small frame with moderate fat and muscle wasting to temporals, cheeks, clavicles, chest noted. Obtained new weight during visit, 83.2lb, BMI 16.2. Discussed with Dr. Yohannes Bradshaw to increase Novasource Renal to 35ml/hr x 24hrs, providing 1680kcal, 76g protein, obtained order. Current Diet Order/ Nutrition Support Novasource Renal 45ml/hr x 16hrs Pertinent Medications Dulcolax, Synthroid, Protonix, Vitamin B complex w/Vitamin C Pertinent Labs 05/16: BUN 77H, creatinine 3.1H , glucose 129H, BNP 1140H Nutritional Hx/Data Height 12.7 cm Height (Calculated Centimeters) 12.7 Current Weight (lbs) 37.739 kg Weight (Calculated Kilograms) 37.7 Weight (Calculated Grams) 96808.9 [place] Body Weight 100lb Weight Status Underweight GI Symptoms Difficult in: Chewing Swallowing Food Allergies No Cultural/Ethnic/Restorationist Belief English. Usual diet at home Tube feeding dependent. Skin Integrity/Comment: ER and RN: right forearm abscess/ulceration Estimated Nutritional Goals Calories/Kcals/Kg IBW 115lb at BMI 22.5, 30- 35kcal/kg (on HD, malnutrition ) Kcals Calculated 1569-1831kcal/kg Protein g/kg: IBW 115lb at BMI 22.5, 1.2-1. 5g/kg (on HD, malnutrition, ? ulceration) Protein Calculated 63-78g Fluid: ml Per MD (hx. CHF) Nutritional Problem 2. Problem Problem Impaired nutrient utilization related to Etiology renal failure aeb Signs/Symptoms: pt is on HD 1. Problem Problem Increased kcal and prot needs related to Etiology renal failure, underweight/ malnutrition, skin integrity aeb Signs/Symptoms: on HD, ?ulceration right forearm, BMI 16.2, muscle/fat depletion Malnutrition Alert Body Fat Depletion (Severe) Mod to Severe Depletion Muscle Mass (Severe) Mod to Severe Depletion Intervention/Recommendation Comments 1. Recommend increase tube feeding rate Novasource Renal to 35ml/hr x 24hrs with consideration of hemodialysis, BMI <18.5, muscle/fat depletion, skin integrity. Expected Outcomes/Goals Expected Outcomes/Goals 1. Pt to meet 100% of estimated nutritional needs on tube feeding with tolerance. Physician Parameters for PEM Body Mass Index (BMI) 16 - 17.9 (Moderate)
[2016-05-21 21:23] LABS: INR 1.01 (0.5-1.4); PROTHROMBIN TIME (TEST) 10.5 SECONDS (9.5-11.5)
[2016-05-22] MEDS: Albuterol/Ipratropium Neb 3 ML AERS HHN SCH ×3 (02:45→12:24)
--- NOTE | 2016-05-22 04:59 | Progress Notes ---
PULMONARY PROGRESS NOTE PROBLEM LIST: 1. Mild exacerbation of chronic obstructive pulmonary disease. 2. Chronic renal failure with hemodialysis. 3. History of fall with ecchymosis. SYMPTOMS: Nil. The patient is awake, but not too much meaningful communication could be done. PHYSICAL EXAMINATION: VITAL SIGNS: The patient's recorded vitals: Temperature is 98.7, blood pressure 137/88, saturation 100% on 1 liter. NECK: Veins not visualized. CHEST: Shows occasional rhonchi, but otherwise unremarkable. HEART: Regular. ABDOMEN: Soft and nontender. LABORATORY DATA: WBC 7.1 and hemoglobin 10.1. ASSESSMENT: The patient is clinically stable, improving respiratory parker. PLANS AND SUGGESTIONS: Discussed with Dr. Yohannes Bradshaw. The patient has a high chance for morbidity and mortality at this age with multiple other medical problems with Alzheimer, to be placed on Coumadin as the prognosis and other is not going to change and continue rest of other treatment and go from there. [facility]# [id number]
[2016-05-22 07:29] LABS: % BASOPHILS 0.1 % (0.0-2.0); % EOSINOPHILS 4.2 % (0.0-5.0); % LYMPHOCYTES 13.5 % (20.0-50.0); % MONOCYTES 9.7 % (2.0-10.0); % NEUTROPHILS 72.5 % (40.0-80.0); HEMATOCRIT 28.9 % (35.0-45.0); HEMOGLOBIN 9.5 gm/dL (11.7-16.1); MEAN CELL VOLUME 86.2 fl (81-100); MEAN CORPUSCULAR HEMOGLOBIN 28.5 pg (27.0-31.0); MEAN PLATELET VOLUME 8.9 fl; NEUTROPHILE ABSOLUTE 7.2 Th/cmm (1.8-8.0); PLATELET COUNT 201 Th/cmm (150-400); RED BLOOD COUNT 3.35 Mil/cmm (3.80-5.20)
[2016-05-22 07:30] LABS: INR 0.98 (0.5-1.4); PROTHROMBIN TIME (TEST) 10.2 SECONDS (9.5-11.5)
[2016-05-22 07:36] LABS: ANION GAP 11.2 (7.0-16.0); BUN - UREA NITROGEN 62 mg/dL (7-25); BUN/CREATININE RATIO 24.8; CALCIUM SERUM 9.8 mg/dL (8.6-10.3); CARBON DIOXIDE 27.8 mEq/L (21.0-31.0); CHLORIDE 107 mEq/L (98-107); CREATININE - SERUM 2.5 mg/dL (0.6-1.2); GLUCOSE 176 mg/dL (70-105); SODIUM SERUM 142 mEq/L (136-145)
[2016-05-22] MEDS: Levothyroxine 0.125 Mg Tab GT SCH (08:39)
[2016-05-22] MEDS: Atorvastatin Calcium 10 MG TAB GT SCH (08:40)
[2016-05-22] MEDS: Pantoprazole 40 mg/Packet GT SCH (08:40)
[2016-05-22] MEDS: Vitamin B Complex w/Vitamin C Tab GT SCH (08:41)
[2016-05-22] MEDS: Silver Antimicrobial Wound Gel 0.25 oz Tube TP SCH (08:41)
--- NOTE | 2016-05-22 10:25 | General Progress Note ---
Subjective - Review of Systems Service Date: 05/22/16 Subjective: Denies c/o, seen on HD this AM Objective - Results Result Diagrams: 05/22/16 06:30 05/22/16 06:30 Recent Labs: Laboratory Last Values WBC 10.0 Th/cmm (4.8-10.8) 05/22/16 06:30 RBC 3.35 Mil/cmm (3.80-5.20) L 05/22/16 06:30 Hgb 9.5 gm/dL (11.7-16.1) L 05/22/16 06:30 Hct 28.9 % (35.0-45.0) L 05/22/16 06:30 MCV 86.2 fl (81-100) 05/22/16 06:30 MCH 28.5 pg (27.0-31.0) 05/22/16 06:30 MCHC Differential 33.0 pg (28.0-36.0) 05/22/16 06:30 RDW 16.0 % (11.5-20.0) 05/22/16 06:30 Plt Count 201 Th/cmm (150-400) 05/22/16 06:30 MPV 8.9 fl 05/22/16 06:30 Neutrophils % 72.5 % (40.0-80.0) 05/22/16 06:30 Lymphocytes % 13.5 % (20.0-50.0) L 05/22/16 06:30 Monocytes % 9.7 % (2.0-10.0) 05/22/16 06:30 Eosinophils % 4.2 % (0.0-5.0) 05/22/16 06:30 Basophils % 0.1 % (0.0-2.0) 05/22/16 06:30 PT 10.2 SECONDS (9.5-11.5) 05/22/16 06:30 INR 0.98 (0.5-1.4) 05/22/16 06:30 Sodium 142 mEq/L (136-145) 05/22/16 06:30 Potassium 4.0 mEq/L (3.5-5.1) 05/22/16 06:30 Chloride 107 mEq/L (98-107) 05/22/16 06:30 Carbon Dioxide 27.8 mEq/L (21.0-31.0) 05/22/16 06:30 Anion Gap 11.2 (7.0-16.0) 05/22/16 06:30 BUN 62 mg/dL (7-25) H 05/22/16 06:30 Creatinine 2.5 mg/dL (0.6-1.2) H 05/22/16 06:30 Est GFR ( Amer) TNP 05/22/16 06:30 Est GFR (Non-Af Amer) TNP 05/22/16 06:30 BUN/Creatinine Ratio 24.8 05/22/16 06:30 Glucose 176 mg/dL (70-105) H 05/22/16 06:30 Hemoglobin A1c % 4.8 % (4.0-6.0) 05/20/16 08:30 Calcium 9.8 mg/dL (8.6-10.3) 05/22/16 06:30 Magnesium 3.0 mg/dL (1.9-2.7) H 05/16/16 15:35 Troponin I 0.03 ng/mL (0.01-0.05) 05/16/16 15:35 B-Natriuretic Peptide 1140.0 pg/mL (5.0-100.0) H 05/16/16 15:35 Triglycerides 178 mg/dL (<150) H 05/18/16 06:26 Cholesterol 120 mg/dL (<200) 05/18/16 06:26 LDL Cholesterol Direct 67 mg/dL (75-193) L 05/18/16 06:26 HDL Cholesterol 33 mg/dL (23-92) 05/18/16 06:26 Random Vancomycin 19.5 ug/mL (5.0-40.0) 05/21/16 06:30 - Physical Exam Vitals and I&O: Vital Signs Temp 98.0 F 05/22/16 07:53 Pulse 76 05/22/16 08:39 Resp 18 05/22/16 07:53 BP 138/57 05/22/16 08:39 Pulse Ox 100 05/22/16 07:53 Intake & Output 05/21/16 05/22/16 05/22/16 18:59 06:59 18:59 Intake Total 300 Balance 300 Intake: Intake, IV Amount 300 cefTRIAXone 1 gm In 50 Dextrose 5% 50 ml @ 100 mls/hr IV Q24H [facility] Rx#: [id number] Active Medications: Current Medications Acetaminophen (Tylenol) 650 mg GT Q6HR PRN PRN Reason: Pain or Fever >101 Stop: 07/15/16 23:02 Last Admin: 05/18/16 20:23 Dose: 650 mg Albuterol/Ipratropium (Duoneb Neb) 3 ml HHN Q6HRT [facility] Stop: 07/17/16 18:59 Last Admin: 05/22/16 07:49 Dose: 3 ml Amiodarone HCl (Cordarone) 200 mg GT DAILY [facility] Stop: 07/16/16 08:59 Last Admin: 05/22/16 08:39 Dose: 200 mg Amlodipine Besylate (Norvasc) 10 mg GT DAILY [facility] Stop: 07/16/16 08:59 Last Admin: 05/21/16 08:20 Dose: 10 mg Atorvastatin Calcium (Lipitor) 10 mg GT DAILY [facility] PRN Reason: Protocol Stop: 07/17/16 08:59 Last Admin: 05/22/16 08:40 Dose: 10 mg Bisacodyl (Dulcolax 10 Mg Supp) 10 mg RC Q48HR [facility] Stop: 07/15/16 23:14 Last Admin: 05/20/16 23:26 Dose: 10 mg Ceftriaxone Sodium 1 gm/ (Dextrose) 50 mls @ 100 mls/hr IV Q24H [facility] Stop: 07/16/16 12:59 Last Infusion: 05/21/16 17:50 Dose: Infused Levothyroxine Sodium (Synthroid) 0.125 mg GT DAILY [facility] Stop: 07/16/16 08:59 Last Admin: 05/22/16 08:39 Dose: 0.125 mg Metoprolol Succinate (Toprol Xl) 25 mg PO DAILY [facility] Stop: 07/16/16 08:59 Last Admin: 05/22/16 08:39 Dose: 25 mg Mirtazapine (Remeron) 15 mg GT HS [facility] PRN Reason: Protocol Stop: 07/16/16 20:59 Last Admin: 05/21/16 20:33 Dose: 15 mg Miscellaneous (Pharmacy To Dose) 1 ea MC PRN [facility] Stop: 07/15/16 23:14 Miscellaneous (Vte Chemical Prophylaxis Screen/ Admission) 1 ea PRN PRN PRN Reason: PROTOCOL Stop: 07/16/16 17:00 Pantoprazole Sodium (Protonix) 40 mg GT DAILY [facility] Stop: 07/16/16 08:59 Last Admin: 05/22/16 08:40 Dose: 40 mg Vitamin B Complex/Vit C/Folic Acid (Vitamin B Complex W/Vitamin C) 1 tab GT DAILY [facility] Stop: 07/16/16 08:59 Last Admin: 05/22/16 08:41 Dose: 1 tab Wound Care/Dressing Products (Silvasorb) 1 appl TP DAILY [facility] Stop: 07/20/16 08:59 Last Admin: 05/22/16 08:41 Dose: 1 appl General: Alert, Oriented x3 HEENT: Atraumatic Neck: Supple Cardiovascular: Regular rate, Normal S1 Lungs: Clear to auscultation Abdomen: Soft Assessment/Plan - Assessment Assessment: ESRD on HD, MWF schedule. Access TC. Anemia secondary to ESRD Renal osteodystrophy Forearm cellulitis s/p fall - Plan Plan: HD today on MWF schedule HGB in range, BP controlled. Continue abx, renal dosing Nutritional Asmnt/Malnutr-PDOC - Dietary Evaluation Malnutrition Findings (Please click <Entered> for more info): Nutritional Asmnt/Malnutrition Start: 05/17/16 13: 00 Text: Status: Complete Freq: Document 05/17/16 13:02 GSUN (Rec: 05/17/16 13:32 [email or web address] [email or web address]) Nutritional Asmnt/Malnutrition Patient General Information Nutritional Screening High Risk Screening Diagnosis ER: leukocytosis, blunt head trauma, on HD, abscess right forearm Pertinent Medical Hx/Surgical Hx ER: HTN, DM, CHF, asthma/COPD, renal failure on HD, thyroid disorder, arthritis, dementia, AHD, GERD, atrial fibrillation Subjective Information 70 year old female from SNF, unwitnessed fall with facial contusions prior to adm. Pt was asleep, unable to be woken up. Pt appears small frame with moderate fat and muscle wasting to temporals, cheeks, clavicles, chest noted. Obtained new weight during visit, 83.2lb, BMI 16.2. Discussed with Dr. Yohannes Brasdhaw to increase Novasource Renal to 35ml/hr x 24hrs, providing 1680kcal, 76g protein, obtained order. Current Diet Order/ Nutrition Support Novasource Renal 45ml/hr x 16hrs Pertinent Medications Dulcolax, Synthroid, Protonix, Vitamin B complex w/Vitamin C Pertinent Labs 05/16: BUN 77H, creatinine 3.1H , glucose 129H, BNP 1140H Nutritional Hx/Data Height 12.7 cm Height (Calculated Centimeters) 12.7 Current Weight (lbs) 37.739 kg Weight (Calculated Kilograms) 37.7 Weight (Calculated Grams) 70417.9 [place] Body Weight 100lb Weight Status Underweight GI Symptoms Difficult in: Chewing Swallowing Food Allergies No Cultural/Ethnic/Taoism Belief Wolof. Usual diet at home Tube feeding dependent. Skin Integrity/Comment: ER and RN: right forearm abscess/ulceration Estimated Nutritional Goals Calories/Kcals/Kg IBW 115lb at BMI 22.5, 30- 35kcal/kg (on HD, malnutrition ) Kcals Calculated 1569-1831kcal/kg Protein g/kg: IBW 115lb at BMI 22.5, 1.2-1. 5g/kg (on HD, malnutrition, ? ulceration) Protein Calculated 63-78g Fluid: ml Per MD (hx. CHF) Nutritional Problem 2. Problem Problem Impaired nutrient utilization related to Etiology renal failure aeb Signs/Symptoms: pt is on HD 1. Problem Problem Increased kcal and prot needs related to Etiology renal failure, underweight/ malnutrition, skin integrity aeb Signs/Symptoms: on HD, ?ulceration right forearm, BMI 16.2, muscle/fat depletion Malnutrition Alert Body Fat Depletion (Severe) Mod to Severe Depletion Muscle Mass (Severe) Mod to Severe Depletion Intervention/Recommendation Comments 1. Recommend increase tube feeding rate Novasource Renal to 35ml/hr x 24hrs with consideration of hemodialysis, BMI <18.5, muscle/fat depletion, skin integrity. Expected Outcomes/Goals Expected Outcomes/Goals 1. Pt to meet 100% of estimated nutritional needs on tube feeding with tolerance. Physician Parameters for PEM Body Mass Index (BMI) 16 - 17.9 (Moderate)
--- NOTE | 2016-05-22 10:48 | Infectious Disease Prog Note ---
Infectious Disease Subjective - Review of Systems Service Date: 05/22/16 Subjective: no new change. Infectious Disease Objective - Results Result Diagrams: 05/22/16 06:30 05/22/16 06:30 Recent Labs: Laboratory Last Values WBC 10.0 Th/cmm (4.8-10.8) 05/22/16 06:30 RBC 3.35 Mil/cmm (3.80-5.20) L 05/22/16 06:30 Hgb 9.5 gm/dL (11.7-16.1) L 05/22/16 06:30 Hct 28.9 % (35.0-45.0) L 05/22/16 06:30 MCV 86.2 fl (81-100) 05/22/16 06:30 MCH 28.5 pg (27.0-31.0) 05/22/16 06:30 MCHC Differential 33.0 pg (28.0-36.0) 05/22/16 06:30 RDW 16.0 % (11.5-20.0) 05/22/16 06:30 Plt Count 201 Th/cmm (150-400) 05/22/16 06:30 MPV 8.9 fl 05/22/16 06:30 Neutrophils % 72.5 % (40.0-80.0) 05/22/16 06:30 Lymphocytes % 13.5 % (20.0-50.0) L 05/22/16 06:30 Monocytes % 9.7 % (2.0-10.0) 05/22/16 06:30 Eosinophils % 4.2 % (0.0-5.0) 05/22/16 06:30 Basophils % 0.1 % (0.0-2.0) 05/22/16 06:30 PT 10.2 SECONDS (9.5-11.5) 05/22/16 06:30 INR 0.98 (0.5-1.4) 05/22/16 06:30 Sodium 142 mEq/L (136-145) 05/22/16 06:30 Potassium 4.0 mEq/L (3.5-5.1) 05/22/16 06:30 Chloride 107 mEq/L (98-107) 05/22/16 06:30 Carbon Dioxide 27.8 mEq/L (21.0-31.0) 05/22/16 06:30 Anion Gap 11.2 (7.0-16.0) 05/22/16 06:30 BUN 62 mg/dL (7-25) H 05/22/16 06:30 Creatinine 2.5 mg/dL (0.6-1.2) H 05/22/16 06:30 Est GFR ( Amer) TNP 05/22/16 06:30 Est GFR (Non-Af Amer) TNP 05/22/16 06:30 BUN/Creatinine Ratio 24.8 05/22/16 06:30 Glucose 176 mg/dL (70-105) H 05/22/16 06:30 Hemoglobin A1c % 4.8 % (4.0-6.0) 05/20/16 08:30 Calcium 9.8 mg/dL (8.6-10.3) 05/22/16 06:30 Magnesium 3.0 mg/dL (1.9-2.7) H 05/16/16 15:35 Troponin I 0.03 ng/mL (0.01-0.05) 05/16/16 15:35 B-Natriuretic Peptide 1140.0 pg/mL (5.0-100.0) H 05/16/16 15:35 Triglycerides 178 mg/dL (<150) H 05/18/16 06:26 Cholesterol 120 mg/dL (<200) 05/18/16 06:26 LDL Cholesterol Direct 67 mg/dL (75-193) L 05/18/16 06:26 HDL Cholesterol 33 mg/dL (23-92) 05/18/16 06:26 Random Vancomycin 19.5 ug/mL (5.0-40.0) 05/21/16 06:30 - Physical Exam Vitals and I&O: Vital Signs Temp 98.0 F 05/22/16 07:53 Pulse 76 05/22/16 08:39 Resp 20 05/22/16 08:00 BP 138/57 05/22/16 08:39 Pulse Ox 100 05/22/16 07:53 Intake & Output 05/21/16 05/22/16 05/22/16 18:59 06:59 18:59 Intake Total 300 Balance 300 Intake: Intake, IV Amount 300 cefTRIAXone 1 gm In 50 Dextrose 5% 50 ml @ 100 mls/hr IV Q24H [facility] Rx#: [id number] Active Medications: Current Medications Acetaminophen (Tylenol) 650 mg GT Q6HR PRN PRN Reason: Pain or Fever >101 Stop: 07/15/16 23:02 Last Admin: 05/18/16 20:23 Dose: 650 mg Albuterol/Ipratropium (Duoneb Neb) 3 ml HHN Q6HRT [facility] Stop: 07/17/16 18:59 Last Admin: 05/22/16 07:49 Dose: 3 ml Amiodarone HCl (Cordarone) 200 mg GT DAILY [facility] Stop: 07/16/16 08:59 Last Admin: 05/22/16 08:39 Dose: 200 mg Amlodipine Besylate (Norvasc) 10 mg GT DAILY [facility] Stop: 07/16/16 08:59 Last Admin: 05/21/16 08:20 Dose: 10 mg Atorvastatin Calcium (Lipitor) 10 mg GT DAILY [facility] PRN Reason: Protocol Stop: 07/17/16 08:59 Last Admin: 05/22/16 08:40 Dose: 10 mg Bisacodyl (Dulcolax 10 Mg Supp) 10 mg RC Q48HR [facility] Stop: 07/15/16 23:14 Last Admin: 05/20/16 23:26 Dose: 10 mg Ceftriaxone Sodium 1 gm/ (Dextrose) 50 mls @ 100 mls/hr IV Q24H [facility] Stop: 07/16/16 12:59 Last Infusion: 05/21/16 17:50 Dose: Infused Levothyroxine Sodium (Synthroid) 0.125 mg GT DAILY [facility] Stop: 07/16/16 08:59 Last Admin: 05/22/16 08:39 Dose: 0.125 mg Metoprolol Succinate (Toprol Xl) 25 mg PO DAILY [facility] Stop: 07/16/16 08:59 Last Admin: 05/22/16 08:39 Dose: 25 mg Mirtazapine (Remeron) 15 mg GT HS [facility] PRN Reason: Protocol Stop: 07/16/16 20:59 Last Admin: 05/21/16 20:33 Dose: 15 mg Miscellaneous (Pharmacy To Dose) 1 ea [facility] PRN [facility] Stop: 07/15/16 23:14 Miscellaneous (Vte Chemical Prophylaxis Screen/ Admission) 1 ea PRN PRN PRN Reason: PROTOCOL Stop: 07/16/16 17:00 Pantoprazole Sodium (Protonix) 40 mg GT DAILY [facility] Stop: 07/16/16 08:59 Last Admin: 05/22/16 08:40 Dose: 40 mg Vitamin B Complex/Vit C/Folic Acid (Vitamin B Complex W/Vitamin C) 1 tab GT DAILY [facility] Stop: 07/16/16 08:59 Last Admin: 05/22/16 08:41 Dose: 1 tab Wound Care/Dressing Products (Silvasorb) 1 appl TP DAILY [facility] Stop: 07/20/16 08:59 Last Admin: 05/22/16 08:41 Dose: 1 appl General: no acute distress, well developed, well nourished HEENT: atraumatic, normocephalic, PERRLA, EOMI Neck: supple, no thyromegaly Cardiovascular: S1S2, regular Lungs: clear to auscultation bilaterally, clear to percussion Abdomen: soft, no tender, no distended Extremities: no cyanosis, no clubbing, no edema Neurological: awake Skin: other (right forearm wound.) Infectious Disease Assmt/Plan - Assessment Assessment: right fore arm wound and cellulitis. Dementia. CKD 5 on HD. Afib. Coaulopathy. HTN COPD. No evidence of hemorrhage in brain as per MRI. - Plan Plan: may continue same treatment. May continue coumadine to achieve INR 2 to 3. DC to snf if ok with consultants Nutritional Asmnt/Malnutr-PDOC - Dietary Evaluation Malnutrition Findings (Please click <Entered> for more info): Nutritional Asmnt/Malnutrition Start: 05/17/16 13: 00 Text: Status: Complete Freq: Document 05/17/16 13:02 UN (Rec: 05/17/16 13:32 [id number] [email or web address]) Nutritional Asmnt/Malnutrition Patient General Information Nutritional Screening High Risk Screening Diagnosis ER: leukocytosis, blunt head trauma, on HD, abscess right forearm Pertinent Medical Hx/Surgical Hx ER: HTN, DM, CHF, asthma/COPD, renal failure on HD, thyroid disorder, arthritis, dementia, AHD, GERD, atrial fibrillation Subjective Information 70 year old female from SNF, unwitnessed fall with facial contusions prior to adm. Pt was asleep, unable to be woken up. Pt appears small frame with moderate fat and muscle wasting to temporals, cheeks, clavicles, chest noted. Obtained new weight during visit, 83.2lb, BMI 16.2. Discussed with Dr. Yohannes Bradshaw to increase Novasource Renal to 35ml/hr x 24hrs, providing 1680kcal, 76g protein, obtained order. Current Diet Order/ Nutrition Support Novasource Renal 45ml/hr x 16hrs Pertinent Medications Dulcolax, Synthroid, Protonix, Vitamin B complex w/Vitamin C Pertinent Labs 05/16: BUN 77H, creatinine 3.1H , glucose 129H, BNP 1140H Nutritional Hx/Data Height 12.7 cm Height (Calculated Centimeters) 12.7 Current Weight (lbs) 37.739 kg Weight (Calculated Kilograms) 37.7 Weight (Calculated Grams) 56876.9 [place] Body Weight 100lb Weight Status Underweight GI Symptoms Difficult in: Chewing Swallowing Food Allergies No Cultural/Ethnic/Religion Belief Croatian. Usual diet at home Tube feeding dependent. Skin Integrity/Comment: ER and RN: right forearm abscess/ulceration Estimated Nutritional Goals Calories/Kcals/Kg IBW 115lb at BMI 22.5, 30- 35kcal/kg (on HD, malnutrition ) Kcals Calculated 1569-1831kcal/kg Protein g/kg: IBW 115lb at BMI 22.5, 1.2-1. 5g/kg (on HD, malnutrition, ? ulceration) Protein Calculated 63-78g Fluid: ml Per MD (hx. CHF) Nutritional Problem 2. Problem Problem Impaired nutrient utilization related to Etiology renal failure aeb Signs/Symptoms: pt is on HD 1. Problem Problem Increased kcal and prot needs related to Etiology renal failure, underweight/ malnutrition, skin integrity aeb Signs/Symptoms: on HD, ?ulceration right forearm, BMI 16.2, muscle/fat depletion Malnutrition Alert Body Fat Depletion (Severe) Mod to Severe Depletion Muscle Mass (Severe) Mod to Severe Depletion Intervention/Recommendation Comments 1. Recommend increase tube feeding rate Novasource Renal to 35ml/hr x 24hrs with consideration of hemodialysis, BMI <18.5, muscle/fat depletion, skin integrity. Expected Outcomes/Goals Expected Outcomes/Goals 1. Pt to meet 100% of estimated nutritional needs on tube feeding with tolerance. Physician Parameters for [facility] Body Mass Index (BMI) 16 - 17.9 (Moderate)
--- NOTE | 2016-05-22 19:47 | Discharge Summary ---
HISTORY OF PRESENT ILLNESS AND HOSPITAL COURSE: The patient is 70-year-old female with past medical history of hypertension; diabetes mellitus type 2; CHF; asthma; COPD; renal failure, on hemodialysis; thyroid disorder; dementia; atrial fibrillation; anemia; and insomnia, brought from nursing facility, status post fall and some facial contusions. Also, she was essentially found to have right upper extremity wound with surrounding erythema and cellulitis. The patient was admitted with cellulitis in right upper extremity. The patient's WBC count was elevated in presentation. She was started on antibiotic and she did well. The patient is stable to be discharged today. DISCHARGE CONDITION: Stable. DISCHARGE DIAGNOSES: 1. Right upper extremity abscess wound and cellulitis. 2. Chronic kidney disease, stage V, on hemodialysis. 3. Hypertension. 4. Insomnia. 5. Thyroid disorder. 6. Diabetes mellitus type 2. 7. Congestive heart failure. 8. Arthritis. 9. Atrial fibrillation. 10. Anemia. CONSULTANTS CALLED: Nephrology consultation with Dr. Forrester and Cardiology consultation with Dr. Dimitri Bhardwaj and Neurology consultation with Dr. Swan for abnormal CAT scan. DISCHARGE CONDITION: Stable. DISCHARGE PLACEMENT: SNF. DISCHARGE MEDICATION: As per medication reconciliation sheet. Antibiotic parker, changes Rocephin to clindamycin p.o. JOB# [id number] [id number]
== END 2016-05-22 14:30 | DRG 871 ==
LOC: ER 15:10 → MSI 19:42
PROVIDERS: ADMIT Internal Medicine Infectious Disease; ATTEND Internal Medicine Infectious Disease
PROC: 5A1D60Z (ICD-10-PCS; principal; 2016-05-17)
DX: A41.9 Sepsis, unspecified organism (principal); N18.6 End stage renal disease; I13.2 Hypertensive heart and chronic kidney disease with heart failure and with stage 5 chronic kidney disease, or end stage renal disease; D68.8 Other specified coagulation defects; E11.21 Type 2 diabetes mellitus with diabetic nephropathy; J44.0 Chronic obstructive pulmonary disease with (acute) lower respiratory infection; G30.9 Alzheimer's disease, unspecified; F02.80 Dementia in other diseases classified elsewhere, unspecified severity, without behavioral disturbance, psychotic disturbance, mood disturbance, and anxiety; L03.113 Cellulitis of right upper limb; E87.1 Hypo-osmolality and hyponatremia; J44.1 Chronic obstructive pulmonary disease with (acute) exacerbation; L02.413 Cutaneous abscess of right upper limb; I48.91 Unspecified atrial fibrillation; S51.801A Unspecified open wound of right forearm, initial encounter; W19.XXXA Unspecified fall, initial encounter; Y93.9 Activity, unspecified; Y92.9 Unspecified place or not applicable; Y99.9 Unspecified external cause status; G47.00 Insomnia, unspecified; S00.83XA Contusion of other part of head, initial encounter; E11.22 Type 2 diabetes mellitus with diabetic chronic kidney disease; I50.9 Heart failure, unspecified; M19.90 Unspecified osteoarthritis, unspecified site; K21.9 Gastro-esophageal reflux disease without esophagitis; J45.909 Unspecified asthma, uncomplicated; E03.9 Hypothyroidism, unspecified; D63.1 Anemia in chronic kidney disease; I25.10 Atherosclerotic heart disease of native coronary artery without angina pectoris; Z79.01 Long term (current) use of anticoagulants; Z99.2 Dependence on renal dialysis; Z93.1 Gastrostomy status
CPT/HCPCS: 36415-UA; 70450-TC; 71010-TC; 80048-TC; 80061-TC; 80202-TC; 83036-90; 83735-TC; 83880-TC; 84484-TC; 85025-TC; 85610-TC; 87070-90; 90937; 93005; 94640; 94760; J0696; J3370; J7030; Z7610; Z7610-TC